=== PATIENT | male | born 1940 | race Caucasian/White ===

== ENCOUNTER 2018-04-01 13:17 | Inpatient (IN) ==
[2018-04-01] MEDS ORDERED: Amiodarone Inj 150 MG in Dextrose 5% in Water Inj 97 ML IV.SIG ONE ×2 (13:20)
[2018-04-01] MEDS ORDERED: Sod Chloride 0.9% Inj 1,000 ML IV.SIG SCH (13:30)
--- NOTE | 2018-04-01 13:36 | ED ---
HPI General Chief Complaint: Arrhythmia / Palpitations Stated Complaint: Cardiac Time Seen by Provider: 04/01/18 13:20 Source: patient and EMS Mode of arrival: EMS Limitations: no limitations History of Present Illness HPI narrative: Patient is a 78-year-old male who presents to the emergency room for evaluation of ventricular tachycardia. Patient reports that he is currently following up with Dr. Kramer his digital marketing program manager. Patient reports that he was walking in the park today when also he felt dizzy. Patient reports that his pacemaker went off once, he called EMS for help. When EMS arrived on scene , patient was found to be in a V. tach rhythm. Patient was given 150 mg of IV amiodarone as well as IV fluids. Patient denies any chest pain or shortness of breath, only reports dizziness. Patient reports that he had a defibrillator placed about 1 year ago when he had a TIA. Patient reports that he was found to have a ventriclular fibrillation rhythm - that is why the defribrillator was placed. Reports that he was put on a bunch of medications including Eliquis, patient reports that he was only given a 30 day course of his medications with no refills so he never had his scripts refilled. Reports that he is supposed to be taking Eliquis but stopped taking it because it made him bleed too much. Patient defibrillator went off a few times, patient does have a [employer] defibrillator. Related Data Home Medications Medication Instructions Recorded Confirmed aspirin 325 mg PO DAILY 03/15/18 03/15/18 azelastine 2 spray INTRANASAL BID 04/01/18 04/01/18 fluticasone [Flonase Allergy 2 spray INTRANASAL DAILY 04/01/18 04/01/18 Relief] furosemide [Lasix] 40 mg PO DAILY 04/01/18 04/01/18 Allergies Allergy/AdvReac Type Severity Reaction Status Date / Time cephalexin AdvReac Severe Diarrhea Verified 03/15/18 06:50 POISON REGULO AdvReac Severe Rash Uncoded 11/23/15 11:26 Review of Systems ROS: all other systems reviewed are negative PMFSH History History Provided By: Patient Medical History Medical History Cardiac defibrillator in place (Acute) TIA (transient ischemic attack) (Acute) Ventricular fibrillation (Acute) Social History Social History Substance History: No History of Abuse Second Hand Smoke Exposure: No Smoking Status: Never smoker How Often Do You Have a Drink Containing Alcohol: Never Recent Travel in [facility] within the Last 8 Weeks: No Recent Out of Country Travel within the Last 8 Weeks: No Exam Narrative Exam Narrative: GENERAL: Moderate distress SKIN: Focused skin assessment warm/dry. HEAD: Atraumatic. Normocephalic. EYES: Pupils equal and round. No scleral icterus. No injection or drainage. ENT: No nasal bleeding or discharge. Mucous membranes pink and moist. NECK: Trachea midline. No JVD. CARDIOVASCULAR: Tachycardic. No murmur appreciated. RESPIRATORY: No accessory muscle use. Clear to auscultation. Breath sounds equal bilaterally. GASTROINTESTINAL: Abdomen soft, non-tender, nondistended. Hepatic and splenic margins not palpable. MUSCULOSKELETAL: No obvious deformities. No clubbing. No cyanosis. No edema. NEUROLOGICAL: Awake and alert. No obvious cranial nerve deficits. Motor grossly within normal limits. Normal speech. PSYCHIATRIC: Appropriate mood and affect; insight and judgment normal. Course Initial Documented Vital Signs Pulse Oximetry 96 04/01/18 13:25 Last Documented Vital Signs Pulse Rate 90 04/01/18 14:53 Respiratory Rate 18 04/01/18 14:53 Blood Pressure 119/76 04/01/18 14:53 Pulse Oximetry 97 04/01/18 14:53 Critical Care Time Critical Care Time: Yes Total Critical Care Time: 45 Attestation: Aggregate critical care time was 45 minutes. Time to perform other separately billable procedures was not included in the critical care time. My time did not include minutes spent treating any other patients simultaneously or on activities that did not directly contribute to the patient's treatment. The services I provided to this patient were to treat and/or prevent clinically significant deterioration that could result in: , decompensation, deterioration I provided critical care services requiring my management, as noted below: Chart data review, documentation time, medication orders and management, vital sign assessments/reviewing monitor data, ordering and reviewing lab tests, ordering and interpreting/reviewing x-rays and diagnostic studies, care of the patient and discussion of the patient with the admitting physicians. Medical Decision Making MDM Narrative Medical decision making narrative: During the course of the patients emergency department visit, the patients history, examination, and differential diagnosis were reviewed with the patient. The patient was placed on a assembler for puller over hand with oximetry and frequent blood pressure monitoring. The patient had an IV access obtained and blood work sent for analysis. The patient was initially provided 150 mg of IV amiodarone by EMS. Patient is alert and oriented x3, patient is conversive. Patient does go into episodes of V. tach, his last episode of V. tach lasted for 33 beats and would resolve on it 's own. Will rebolus patient with another 150mg of amio and start an amio drip Call made to Dr. Kramer - his digital marketing program manager - Dr. Aden is sales operations director for Dr. Kramer [facility] rep is here in the ER evaluating patient Dr Aden is at bedside evaluating patient, recommends a heparin drip with heparin bolus along with amiodarone drip and bolus. If patient still goes into episodes of V. tach, then will start lidocaine. Patient controlled on amio drip - he has short episodes of vtach - patient will be admitted case reviewed with Dr. Travis who accepts pt to service Medical Screen Exam Complete: Yes Emergency Medical Condition: Yes Differential Diagnosis Differential Diagnosis: electrolyte abnormality, arrythmia, aortic dissection, acs Medical Records Medical records reviewed: Yes I reviewed the patient's medical records. Lab Data Result diagrams: 04/01/18 13:37 04/01/18 13:37 Lab Results 04/01/18 04/01/18 04/01/18 Range/Units 13:37 13:37 13:37 WBC 8.3 (4.0-11.0) th/mm3 RBC 4.49 L (4.50-5.90) mil/mm3 Hgb 14.6 (13.0-17.0) gm/dL Hct 41.4 (39.0-51.0) % MCV 92.2 (80.0-100.0) fL MCH 32.6 (27.0-34.0) pg MCHC 35.3 (32.0-36.0) % RDW 14.5 (11.6-17.2) % Plt Count 171 (150-450) th/mm3 MPV 8.9 (7.0-11.0) fL Neut % (Auto) 67.6 (16.0-70.0) % Lymph % (Auto) 19.1 (9.0-44.0) % [place] % (Auto) 7.8 (0.0-8.0) % Eos % (Auto) 4.5 H (0.0-4.0) % Baso % (Auto) 1.0 (0.0-2.0) % Neut # (Auto) 5.6 (1.8-7.7) th/mm3 Lymph # (Auto) 1.6 (1.0-4.8) th/mm3 [place] # (Auto) 0.6 (0.0-0.9) th/mm3 Eos # (Auto) 0.4 (0.0-0.4) th/mm3 Baso # (Auto) 0.1 (0.0-0.2) th/mm3 WBC Differential . Differential Comment Auto diff final PT 11.4 (9.8-11.6) sec INR 1.1 Ratio APTT 28.0 (23.4-31.7) sec Sodium 142 (136-145) meq/L Potassium 4.0 (3.5-5.1) meq/L Chloride 108 H (98-107) meq/L Carbon Dioxide 30.1 (21.0-32.0) meq/L Anion Gap 4 L (5-15) meq/L BUN 18 (7-18) mg/dL Creatinine 0.81 (0.60-1.30) mg/dL Estimated GFR Greater than 89 (>89) mL/min Random Glucose 86 (74-106) mg/dL Calcium 7.6 L (8.5-10.1) mg/dL Magnesium 2.2 (1.5-2.5) mg/dL Total Bilirubin 0.9 (0.2-1.0) mg/dL AST 42 H (15-37) U/L ALT 30 (12-78) U/L Alkaline Phosphatase 68 (45-117) U/L Total Creatine Kinase 62 (39-308) U/L Troponin I Less than 0.02 L (0.02-0.05) ng/mL B-Natriuretic Peptide (0-100) pg/mL Total Protein 6.8 (6.4-8.2) g/dL Albumin 3.1 L (3.4-5.0) g/dL Lipase 191 (73-393) U/L 04/01/ Range/Units 13:37 WBC (4.0-11.0) th/mm3 RBC (4.50-5.90) mil/mm3 Hgb (13.0-17.0) gm/dL Hct (39.0-51.0) % MCV (80.0-100.0) fL MCH (27.0-34.0) pg MCHC (32.0-36.0) % RDW (11.6-17.2) % Plt Count (150-450) th/mm3 MPV (7.0-11.0) fL Neut % (Auto) (16.0-70.0) % Lymph % (Auto) (9.0-44.0) % [place] % (Auto) (0.0-8.0) % Eos % (Auto) (0.0-4.0) % Baso % (Auto) (0.0-2.0) % Neut # (Auto) (1.8-7.7) th/mm3 Lymph # (Auto) (1.0-4.8) th/mm3 [place] # (Auto) (0.0-0.9) th/mm3 Eos # (Auto) (0.0-0.4) th/mm3 Baso # (Auto) (0.0-0.2) th/mm3 WBC Differential Differential Comment PT (9.8-11.6) sec INR Ratio APTT (23.4-31.7) sec Sodium (136-145) meq/L Potassium (3.5-5.1) meq/L Chloride (98-107) meq/L Carbon Dioxide (21.0-32.0) meq/L Anion Gap (5-15) meq/L BUN (7-18) mg/dL Creatinine (0.60-1.30) mg/dL Estimated GFR (>89) mL/min Random Glucose (74-106) mg/dL Calcium (8.5-10.1) mg/dL Magnesium (1.5-2.5) mg/dL Total Bilirubin (0.2-1.0) mg/dL AST (15-37) U/L ALT (12-78) U/L Alkaline Phosphatase (45-117) U/L Total Creatine Kinase (39-308) U/L Troponin I (0.02-0.05) ng/mL B-Natriuretic Peptide 4308 H (0-100) pg/mL Total Protein (6.4-8.2) g/dL Albumin (3.4-5.0) g/dL Lipase (73-393) U/L Imaging Data Radiologist's impression: Chest X-Ray 04/01/18 13:22 CONCLUSION: 1. Cardiomegaly with subtle positive fluid balance. 2. Subtle patchy airspace disease in the right upper lung zone. Thoracic Aorta CT 04/01/18 13:37 CONCLUSION: 1. Unremarkable CTA examination of the chest, abdomen and pelvis. No significant flow-limiting lesion or aneurysm. 2. Mesenteric arteries are widely patent. 3. Clustered nodular opacities in the right suprahilar and posterior right upper lobe likely infectious/inflammatory in etiology. 4. Minimal parenchymal airspace disease and bronchiectasis at the lung bases. 5. Cardiomegaly. 6. Prominent prostate with diffuse bladder wall thickening and multiple bladder diverticula consistent with chronic bladder outlet obstruction. 7. Additional ancillary findings, as above. Discharge Plan Discharge Disposition Patient Disposition: 30 Still Patient Discharge Condition Condition: Fair Discharge Details Diagnosis: Ventricular tachycardia Physicians Team ED Provider: Danielle Street Rxs /Orders / Referrals /Forms Prescriptions: No Action aspirin 325 mg Tablet 325 mg PO DAILY RF: 0 furosemide [Lasix] 40 mg Tablet 40 mg PO DAILY RF: 0 fluticasone [Flonase Allergy Relief] 50 mcg/actuation [place],Suspension 2 spray INTRANASAL DAILY RF: 0 azelastine 0.15 % (205.5 mcg) [place],Non-Aerosol 2 spray INTRANASAL BID RF: 0 Discharge Interventions Interventions: Vital Signs Last Done: 04/01/18 14:53 Status ED Status: With Doctor
--- NOTE | 2018-04-01 13:48 | XR ---
EXAM DATE: 04/01/2018 1:44 PM EST AGE/SEX: 78 years / Male INDICATIONS: Dizziness. CLINICAL DATA: This is the patient's initial encounter. Patient reports that signs and symptoms have been present for 1 day and indicates a pain score of 0/10. MEDICAL/SURGICAL HISTORY: None. . Pacemaker. COMPARISON: [facility], CT CHEST W/O CONTRAST, 02/28/2017. . FINDINGS: Interval placement of dual-lead AICD device. Cardiac silhouette is enlarged. Central pulmonary vascul arity is slightly indistinct. Subtle patchy airspace disease in the right upper lung zone.h Osseous s tructures are intact. CONCLUSION: 1. Cardiomegaly with subtle positive fluid balance. 2. Subtle patchy airspace disease in the right upper lung zone. Electronically signed by: Moses Heart MD 04/01/2018 1:47 PM EST
[2018-04-01 13:59] LABS: Baso # (Auto) 0.1 th/mm3 (0.0-0.2); Eos # (Auto) 0.4 th/mm3 (0.0-0.4); Eos % (Auto) 4.5 % (0.0-4.0); Hematocrit 41.4 % (39.0-51.0); Hemoglobin 14.6 gm/dL (13.0-17.0); Lymph # (Auto) 1.6 th/mm3 (1.0-4.8); Lymph % (Auto) 19.1 % (9.0-44.0); Mean Corpuscular HGB Conc 35.3 % (32.0-36.0); Mean Corpuscular Hemoglobin 32.6 pg (27.0-34.0); Mean Corpuscular Volume 92.2 fL (80.0-100.0); Mean Platelet Volume 8.9 fL (7.0-11.0); Mono # (Auto) 0.6 th/mm3 (0.0-0.9); Mono % (Auto) 7.8 % (0.0-8.0); Neut # (Auto) 5.6 th/mm3 (1.8-7.7); Neut % (Auto) 67.6 % (16.0-70.0); Platelet Count 171 th/mm3 (150-450); Red Blood Count 4.49 mil/mm3 (4.50-5.90); Red Cell Distribution Width 14.5 % (11.6-17.2); White Blood Count 8.3 th/mm3 (4.0-11.0)
[2018-04-01 14:02] LABS: INR 1.1 Ratio; Prothrombin Time 11.4 sec (9.8-11.6)
[2018-04-01 14:05] LABS: Alanine Aminotransferase 30 U/L (12-78); Albumin 3.1 g/dL (3.4-5.0); Anion Gap 4 meq/L (5-15); Aspartate Aminotransferase 42 U/L (15-37); Blood Urea Nitrogen 18 mg/dL (7-18); Calcium 7.6 mg/dL (8.5-10.1); Carbon Dioxide 30.1 meq/L (21.0-32.0); Chloride 108 meq/L (98-107); Glomerular Filtration Rate Greater Than 89 mL/min (>89); Glucose,Random 86 mg/dL (74-106); Lipase 191 U/L (73-393); Magnesium 2.2 mg/dL (1.5-2.5); Sodium 142 meq/L (136-145)
[2018-04-01 14:09] LABS: Alkaline Phosphatase 68 U/L (45-117); Creatine Kinase 62 U/L (39-308); Total Protein 6.8 g/dL (6.4-8.2)
--- NOTE | 2018-04-01 15:11 | CT ---
EXAM DATE: 04/01/2018 3:01 PM EST AGE/SEX: 78 years / Male INDICATIONS: Diffuse abdomen pain today. CLINICAL DATA: This is the patient's initial encounter. Patient reports that signs and symptoms have been present for 1 day and indicates a pain score of 4/10. MEDICAL/SURGICAL HISTORY: Transient ischemic attack. . defibrillator placement RADIATION DOSE: 17.29 CTDI (mGy) COMPARISON: [facility], CT CHEST W/O CONTRAST, 02/28/2017. . TECHNIQUE: Volumetric scanning was performed using a multi-row detector CT scanner during bolus infu henry of 100 ml Omnipaque 350 (iohexol) nonionic water-soluble contrast as a single exam dose. The d deonna was post processed with a variety of visualization algorithms including full volume maximum inten sity projection, multi-planar sliding thin slab reformation, curved planar reformation, and surface r endering techniques. Using automated exposure control and adjustment of the mA and/or kV according t o patient size, radiation dose was kept as low as reasonably achievable to obtain optimal diagnostic quality images. DICOM format image data is available electronically for review and comparison. FINDINGS: Angiographic Findings: Ascending: Normal in [place] without evidence for dissection. Arch: Normal 3 vessel arch anatomy. Proximal arch vessels are patent. Arch is normal in caliber witho ut dissection. Descending: Normal in [place] without evidence for dissection. Abdominal Aorta: Normal in caliber without significant flow limiting stenosis or dissection. Iliacs: The iliac arteries are patent and non-aneurysmal Renal Arteries: Single patent renal arteries. Mesenteric Arteries: Celiac, SMA, and MARIBEL are patent.: General Findings: LUNGS: Cluster of nodular opacities in the right suprahilar region as well as the posterior right up per lobe. Associated minimal bronchiectasis centrally. Minimal groundglass opacities at the lung base s with associated mild bronchiectasis. PLEURA: Trace right and very subtle trace left pleural effusions. MEDIASTINUM: Heart is enlarged without significant pericardial effusion. Mediastinal and hilar calci fied nodes. LIVER: Multiple subcentimeter hypodense lesions throughout the liver which are too small to fully ch aracterize. These appear unchanged from prior exam. SPLEEN: Normal in size with scattered punctate calcifications. PANCREAS: Unremarkable without mass or calcification. KIDNEYS: Kidneys demonstrate symmetrical enhancement and are symmetrical in size without evidence fo r radiopaque renal calculi or hydronephrosis. ADRENAL GLANDS: Unremarkable. BOWEL/MESENTERY: Small to moderate amount of stool throughout the colon. Mild to moderate sigmoid di verticulosis without significant inflammatory change. No dilated loops of bowel. Mild diffuse mesente carmelina stranding without significant ascites. ABDOMINAL WALL: Intact. RETROPERITONEUM: No evidence of adenopathy in the retrocrural, para-aortic, or deep pelvic regions. BLADDER: Diffuse circumferential bladder wall thickening with multiple bladder diverticula. REPRODUCTIVE: Prominent prostate containing multiple coarse calcifications. BONY STRUCTURES: Degenerative spondylosis of the lumbar spine with small bone island at L1 and sacru m. CONCLUSION: 1. Unremarkable CTA examination of the chest, abdomen and pelvis. No significant flow-limiting lesio n or aneurysm. 2. Mesenteric arteries are widely patent. 3. Clustered nodular opacities in the right suprahilar and posterior right upper lobe likely infecti ous/inflammatory in etiology. 4. Minimal parenchymal airspace disease and bronchiectasis at the lung bases. 5. Cardiomegaly. 6. Prominent prostate with diffuse bladder wall thickening and multiple bladder diverticula consiste nt with chronic bladder outlet obstruction. 7. Additional ancillary findings, as above. Electronically signed by: Moses Heart MD 04/01/2018 3:10 PM EST
[2018-04-01] MEDS ORDERED: Heparin 10,000 UNITS/10 ML Vial (for IV use) IV.PUSH STA (15:14)
[2018-04-01] MEDS ORDERED: Acetaminophen 325 MG Tablet PO PRN (15:25)
[2018-04-01] MEDS ORDERED: Bisacodyl 10 MG Supp RECTAL PRN (15:25)
[2018-04-01] MEDS: Heparin Drip 25,000 UNIT/250 ML BAG IV.CONT PRN (15:29)
[2018-04-01] MEDS ORDERED: Potassium Chlor 20 mEq Premix 20 MEQ/100 ML PIGGYBACK IV.SIG PRN ×2 (15:30)
[2018-04-01] MEDS ORDERED: Potassium Chlor 40 mEq Premix 40 MEQ/100 ML PIGGYBACK IV.SIG PRN ×2 (15:30)
[2018-04-01] MEDS ORDERED: Sodium Phosphate Inj 30 MMOL in Sodium Chlor 0.9% Inj 250 ML IV.SIG PRN (15:30)
[2018-04-01] MEDS ORDERED: Magnesium Sulfate Inj 2 GM in Sodium Chlor 0.9% Inj 96 ML IV.SIG PRN (15:30)
[2018-04-01] MEDS ORDERED: Magnesium Sulfate Inj 4 GM in Sodium Chlor 0.9% Inj 92 ML IV.SIG PRN (15:30)
[2018-04-01] MEDS ORDERED: Potassium Phosphate Inj 30 MMOL in Sodium Chlor 0.9% Inj 250 ML IV.SIG PRN (15:30)
[2018-04-01] MEDS ORDERED: Magnesium Oxide 400 MG Tablet PO PRN (15:30)
[2018-04-01] MEDS ORDERED: Potassium Phosphate 500 MG Soluble Tablet PO PRN ×2 (15:30)
[2018-04-01] MEDS ORDERED: Potassium Chloride 25 MEQ Effervescent Tablet PO PRN (15:30)
--- NOTE | 2018-04-01 15:35 | ECHRPT ---
Indication: AFIB AND FLUTTER CONCLUSIONS Severely dilated left ventricle. Wall thickness is normal. The left ventricular systolic function is severely reduced with an estimated ejection fraction less than 20%. There is diffuse global hypokinesis with distinct regional wall motion abnormalities. The left atrial size is [id number] dilated. Mild thickening of the mitral valve leaflets. severe mitral valve regurgitation. Trace aortic valve regurgitation. The estimated pulmonary arterial pressure is 45 mmHg. BP: / HR: Rhythm: MEASUREMENTS (Male / Female) Normal Values Technical Quality: 2D ECHO LV Diastolic Diameter PLAX 7.0 cm 4.2 - 5.9 / 3.9 - 5.3 cm LV Systolic Diameter PLAX 6.7 cm IVS Diastolic Thickness 1.2 cm 0.6 - 1.0 / 0.6 - 0.9 cm LVPW Diastolic Thickness 1.2 cm 0.6 - 1.0 / 0.6 - 0.9 cm LV Relative Wall Thickness 0.3 RV Internal Dim ED PLAX 3.1 cm LVOT Diameter 1.8 cm Aortic Root Diameter 3.0 cm LA Systolic Diameter LX 4.4 cm 3.0 - 4.0 / 2.7 - 3.8 cm LV Ejection Fraction MOD BP 8.3 % >= 55 % LV Ejection Fraction MOD 4C 14.1 % LV Ejection Fraction 4C AL 17.4 % LV Ejection Fraction MOD 2C 1.5 % LV Ejection Fraction 2C AL 1.4 % M-MODE Aortic Root Diameter MM 3.2 cm LA Systolic Diameter MM 4.9 cm LA Ao Ratio MM 1.5 AV Cusp Separation MM 1.8 cm DOPPLER AV Peak Velocity 89.2 cm/s AV Peak Gradient 3.2 mmHg AI Peak Velocity 239.0 cm/s AI Peak Gradient 22.8 mmHg AI Pressure Half Time 426.0 ms LVOT Peak Velocity 38.0 cm/s LVOT Peak Gradient 0.6 mmHg AV Area Cont Eq pk 1.1 cm Mitral E Point Velocity 81.9 cm/s LV E' Lateral Velocity 4.9 cm/s Mitral E to LV E' Lateral Ratio 16.8 LV E' Septal Velocity 5.4 cm/s Mitral E to LV E' Septal Ratio 15.3 TR Peak Velocity 294.0 cm/s TR Peak Gradient 34.6 mmHg Right Atrial Pressure 10.0 mmHg Pulmonary Artery Systolic Pressu 44.6 mmHg Right Ventricular Systolic Press 44.6 mmHg PV Peak Velocity 64.0 cm/s PV Peak Gradient 1.6 mmHg FINDINGS LEFT VENTRICLE Severely dilated left ventricle. Wall thickness is normal. The left ventricular systolic function is severely reduced with an estimated ejection fraction less than 20%. There is diffuse global hypokinesis with distinct regional wall motion abnormalities. RIGHT VENTRICLE Normal right ventricular size and systolic function. LEFT ATRIUM The left atrial size is [id number] dilated. RIGHT ATRIUM The right atrial size is normal. ATRIAL SEPTUM Normal atrial septal thickness without atrial level shunting by limited color doppler interrogation. AORTA The aortic root and proximal ascending aorta are normal in size on limited imaging. MITRAL VALVE Mild thickening of the mitral valve leaflets. [id number] mitral valve regurgitation. AORTIC VALVE Trace aortic valve regurgitation. TRICUSPID VALVE The estimated pulmonary arterial pressure is 45 mmHg. PULMONARY VALVE No pulmonary valve regurgitation or stenosis. VESSELS The inferior vena cava is normal in size. PERICARDIUM No pericardial effusion. Sonny Aden MD, FACC, FSCAI (Electronically Signed) Final Date:01 April 2018 15:34
[2018-04-01] MEDS: Metoprolol Tartrate 25 MG Tablet PO SCH ×2 (15:47→21:06)
--- NOTE | 2018-04-01 16:09 | P.HPCC ---
History of Present Illness Primary Care Physician: Winston Richey MD Chief Complaint: [facility] History of Present Illness: Patient is a 78-year-old male with past medical history significant for TIA, AICD placement approximately 1 year ago for ventricular tachycardia/ fibrillation who presented to the emergency department for evaluation of arrhythmia and AICD firing. 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 Apparently patient was walking in the park today when he felt dizzy and pacemaker fired. EMS was called, found patient in V. tach rhythm. Patient was given 150 mg of IV amiodarone by EMS. In the ER Patient stated that he is supposedly on a 'bunch of medications' but never refilled any after the 30-day supply ran out. Apparently he stopped Eliquis on his own due to bleeding. In the emergency department patient had recurrent ventricular tachycardia up to [address] Aden was consulted and evaluated patient. AICD rep was called and interrogated the pacemaker the shocks are appropriate. Patient was re-bolused with 150 mg of amiodarone and amiodarone infusion had been started per protocol. Also placed on IV heparin I evaluated the patient in the ED. He appears to be in mild distress. Rhythm appears to be paced, while I was evaluating the patient had a 12 beat run of ventricle tachycardia. I have ordered metoprolol 25 mg x1 now and twice daily to be started. I reviewed the 2D echo myself and also discussed with Dr. Aden. 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 He is likely not a candidate for cardiac transplant given his advanced age. Continue IV amiodarone infusion, p.o. metoprolol, add lidocaine if recurrent V. tach. His BNP is 4300 - Diagnosis (1) Recurrent ventricular tachycardia (2) Near syncope (3) Ventricular tachycardia (4) Cardiomyopathy (5) Severe mitral regurgitation Inpatient Certification: I certify that the inpatient services were ordered in accordance with Medicare regulations governing the order. This includes certification that hospital inpatient services are reasonable and necessary and in the case of services not specified as inpatient-only under 42 CFR 419.22(n), that they are appropriately provided as inpatient services in accordance to with the 2-midnight benchmark under 43 CFR 412.3(e) Estimated Total Length of Stay (Days): 5 Plans for Post Hospital Care: Not yet determined Review of Systems All other systems reviewed negative except as stated in HPI PMFSH - History History Provided By: Patient - Medical History Medical History: Medical History (Last Reviewed 04/01/18 @ 16:09 by Clarisa Travis MD) Cardiac defibrillator in place TIA (transient ischemic attack) Ventricular fibrillation - Tobacco History Second Hand Smoke Exposure: No Tobacco Use In Past 30 Days: No Smoking Status: Never smoker - Alcohol History How Often Do You Have a Drink Containing Alcohol: 4 or more times a week - Substance Use History Substance History: No History of Abuse - Travel History Recent Travel in the [place] Within the Last 8 Weeks: No Recent Travel Out of the Country Within the Last 8 Weeks: No - Immunization History Tetanus Immunization: Unsure Medications and Allergies Active Medications: Active Medications Acetaminophen (Tylenol) 650 mg PO Q6H PRN PRN Reason: PAIN 1-10 AND/OR FEVER >101F Al Hydroxide/Mg Hydroxide (Milk Of Magnjonah Liq) 30 ml PO Q12H PRN PRN Reason: Mild Constipation Albuterol (Duoneb Neb (Prn)) 1 ampul NEB Q2HR NEB PRN PRN Reason: WHEEZING Aspirin (Ecotrin) 162 mg PO DAILY JESSICA Bisacodyl (Dulcolax Supp) 10 mg RECTAL DAILY PRN PRN Reason: SEVERE CONSITIPATION Chlorhexidine Gluconate (Chlorhexidine 2% Cloth) 3 pack TOPICAL DAILY@0400 JESSICA Stop: 04/07/18 03:59 Chlorhexidine Gluconate (Chlorhexidine 2% Cloth) 3 pack TOPICAL DAILY@0400 PRN PRN Reason: Extra cloth needed Stop: 04/07/18 03:59 Famotidine (Pepcid Pf Inj) 20 mg IV.PUSH Q12HR JESSICA Amiodarone HCl 450 mg/ (Dextrose) 250 mls @ 33.33 mls/hr IV.CONT TITRATE PRN; Protocol PRN Reason: Per Protocol Last Admin: 04/01/18 13:36 Dose: 1 mg/min, 33.33 mls/hr Heparin Sodium/Dextrose (Heparin/D5w 25,000 U/250 Ml) 25,000 unit in 250 mls @ 0 mls/hr IV.CONT TITRATE PRN; Protocol PRN Reason: Per Protocol Last Admin: 04/01/18 15:29 Dose: 800 units/hr, 8 mls/hr Magnesium Sulfate 4 gm/ Sodium (Chloride) 100 mls @ 50 mls/hr IV.SIG UNSCH PRN PRN Reason: For Magnesium 0.9 - 1.1 mg/dL Magnesium Sulfate 2 gm/ Sodium (Chloride) 100 mls @ 50 mls/hr IV.SIG UNSCH PRN PRN Reason: For Magnesium 1.2 - 1.6 mg/dL Potassium Chloride (Kcl 40 Meq Premix Inj) 40 meq in 100 mls @ 25 mls/hr IV.SIG Q2H PRN PRN Reason: For Potassium 2.8 - 3.2 mEq/L Potassium Chloride (Kcl 20 Meq Premix Inj) 20 meq in 100 mls @ 50 mls/hr IV.SIG Q2H PRN PRN Reason: For Potassium 3.3 - 3.5 mEq/L Potassium Chloride (Kcl 40 Meq Premix Inj) 40 meq in 100 mls @ 25 mls/hr IV.SIG UNSCH PRN PRN Reason: For Potassium 3.3 - 3.5 mEq/L Potassium Chloride (Kcl 20 Meq Premix Inj) 20 meq in 100 mls @ 50 mls/hr IV.SIG Q2H PRN PRN Reason: For Potassium 2.8 - 3.2 mEq/L Potassium Phosphate 30 mmol/ (Sodium Chloride) 260 mls @ 42 mls/hr IV.SIG UNSCH PRN PRN Reason: SEE LABEL COMMENTS Sodium Phosphate 30 mmol/ (Sodium Chloride) 260 mls @ 42 mls/hr IV.SIG UNSCH PRN PRN Reason: For Phosphorus < 2.5 mg/dL Multivitamins 10 ml/ Thiamine HCl 100 mg/ Folic Acid 1 mg/Sodium Chloride 511.2 mls @ 125 mls/hr IV.SIG Q24H JESSICA Stop: 04/03/18 20:06 Lactulose (Lactulose Liq) 30 ml PO DAILY PRN PRN Reason: SEVERE CONSITIPATION Magnesium Oxide (Mag-Ox) 800 mg PO UNSCH PRN PRN Reason: For Magnesium 1.2 - 1.6 mg/dL Metoprolol Tartrate (Lopressor) 25 mg PO BID [facility] Last Admin: 04/01/18 15:47 Dose: 25 mg Potassium Bicarb/Potassium Chloride (K-Lyte Cl Eff) 50 meq PO UNSCH PRN PRN Reason: For Potassium 3.3 - 3.5 mEq/L Potassium Phosphate (K-Phos Original) 2,000 mg PO Q4H PRN PRN Reason: Phosphorus Less Than 2.5 mg/dL Potassium Phosphate (K-Phos Original) 2,000 mg PO UNSCH PRN PRN Reason: SEE LABEL COMMENTS Senna/Docusate Sodium (Coco-Colace) 1 tab PO BID JESSICA Sennosides (Senokot) 17.2 mg PO Q12H PRN PRN Reason: Moderate Constipation Sodium Chloride (Ns Flush) 2 ml IV.FLUSH UNSCH PRN PRN Reason: FLUSH AFTER USING IV ACCESS Sodium Chloride (Ns Flush) 2 ml IV.FLUSH BID JESSICA Sodium Chloride (Ns Flush) 2 ml IV.FLUSH PRN PRN PRN Reason: FLUSH AFTER USING IV ACCESS Allergies Allergy/AdvReac Type Severity Reaction Status Date / Time cephalexin AdvReac Severe Diarrhea Verified 03/15/18 06:50 POISON REGULO AdvReac Severe Rash Uncoded 11/23/15 11:26 Home Medications Medication Instructions Recorded Confirmed Type aspirin 325 mg PO DAILY 03/15/18 04/01/18 History azelastine 2 spray INTRANASAL BID 04/01/18 04/01/18 History fluticasone [Flonase Allergy 2 spray INTRANASAL DAILY 04/01/18 04/01/18 History Relief] furosemide [Lasix] 40 mg PO DAILY 04/01/18 04/01/18 History Results - Labs CBC & Chem 7: 04/01/18 13:37 04/01/18 13:37 Labs: Short CBC 04/01/18 Range/Units 13:37 WBC 8.3 (4.0-11.0) th/mm3 Hgb 14.6 (13.0-17.0) gm/dL Hct 41.4 (39.0-51.0) % Plt Count 171 (150-450) th/mm3 BMP 04/01/18 13:37 Sodium 142 Potassium 4.0 Chloride 108 H Carbon Dioxide 30.1 BUN 18 Creatinine 0.81 Calcium 7.6 L Cardiac Enzymes 04/01/18 Range/Units 13:37 Total Creatine Kinase 62 (39-308) U/L Troponin I Less than 0.02 L (0.02-0.05) ng/mL Liver Function 04/01/18 Range/Units 13:37 Total Bilirubin 0.9 (0.2-1.0) mg/dL AST 42 H (15-37) U/L ALT 30 (12-78) U/L Alkaline Phosphatase 68 (45-117) U/L Albumin 3.1 L (3.4-5.0) g/dL - Imaging Impressions Chest X-Ray 04/01/18 13:22 CONCLUSION: 1. Cardiomegaly with subtle positive fluid balance. 2. Subtle patchy airspace disease in the right upper lung zone. Thoracic Aorta CT 04/01/18 13:37 CONCLUSION: 1. Unremarkable CTA examination of the chest, abdomen and pelvis. No significant flow-limiting lesion or aneurysm. 2. Mesenteric arteries are widely patent. 3. Clustered nodular opacities in the right suprahilar and posterior right upper lobe likely infectious/inflammatory in etiology. 4. Minimal parenchymal airspace disease and bronchiectasis at the lung bases. 5. Cardiomegaly. 6. Prominent prostate with diffuse bladder wall thickening and multiple bladder diverticula consistent with chronic bladder outlet obstruction. 7. Additional ancillary findings, as above. Exam Vital signs: Vital Signs 04/01/18 13:25 04/01/18 13:50 04/01/18 14:53 Pulse Rate 107 H 90 Respiratory Rate 18 18 Blood Pressure 102/84 119/76 Pulse Oximetry 96 98 97 Intake & Output 03/31/18 04/01/18 04/01/18 18:59 06:59 18:59 Intake Total 100 / 100 Balance 100 / 100 Weight 69.4 kg Intake: IV 100 / 100 Cordarone Inj 150 MG In D5W Inj 100 / 100 97 ML @ 600 mls/hr IV.SIG ONCE ONE Rx#:[id number] Narrative: GENERAL: Mild distress, mildly anxious SKIN: warm/dry. HEAD: Atraumatic. Normocephalic. EYES: Pupils equal and round. ENT: No nasal bleeding or discharge. NECK: Trachea midline. No JVD. CARDIOVASCULAR: Tachycardic. Grade 1 systolic murmur at the apex. Left upper chest AICD in place RESPIRATORY: No accessory muscle use. Clear to auscultation. Breath sounds equal bilaterally. GASTROINTESTINAL: Abdomen soft, non-tender, nondistended. Hepatic and splenic margins not palpable. MUSCULOSKELETAL: No obvious deformities. No clubbing. No cyanosis. No edema. NEUROLOGICAL: Awake and alert. No obvious cranial nerve deficits. Motor grossly within normal limits. Normal speech. PSYCHIATRIC: Appears to have poor insight Septic Shock Reassessment Septic shock perfusion: reassessment completed Caprini VTE Risk Assessment Caprini VTE Risk Assessment: Moderate/High Risk (score >= 2) Caprini Risk Assessment Model: Point Value = 1 Point Value = 2 Point Value = 3 Point Value = 5 Age 41-60 Minor surgery BMI > 25 kg/m2 Swollen legs Varicose veins or History of unexplained or recurrent spontaneous Oral contraceptives or hormone replacement Sepsis (< 1 month) Serious lung disease, including pneumonia (< 1 month) Abnormal pulmonary function Acute myocardial infarction Congestive heart failure (< 1 month) History of inflammatory bowel disease Medical patient at bed rest Age 61-74 Arthroscopic surgery Major open surgery (> 45 min) Laparoscopic surgery (> 45 min) Malignancy Confined to bed (> 72 hours) Immobilizing plaster cast Central venous access Age >= 75 History of VTE Family history of VTE Factor V Leiden Prothrombin [id number] Lupus anticoagulant Anticardiolipin antibodies Elevated serum homocysteine Heparin-induced thrombocytopenia Other congenital or acquired thrombophilia Stroke (< 1 month) Elective arthroplasty Hip, pelvis, or leg fracture Acute spinal cord injury (< 1 month) Prophylaxis Regimen: Total Risk Factor Score Risk Level Prophylaxis Regimen 0-1 Low Early ambulation 2 Moderate Order ONE of the following: *Sequential Compression Device (SCD) *Heparin 5000 units SQ BID 3-4 Higher Order ONE of the following medications: *Heparin 5000 units SQ TID *Enoxaparin/Lovenox 40 mg SQ daily (WT < 150 kg, CrCl > 30 mL/min) *Enoxaparin/Lovenox 30 mg SQ daily (WT < 150 kg, CrCl > 10-29 mL/min) *Enoxaparin/Lovenox 30 mg SQ BID (WT < 150 kg, CrCl > 30 mL/min) AND/OR *Sequential Compression Device (SCD) 5 or more Highest Order ONE of the following medications: *Heparin 5000 units SQ TID (Preferred with Epidurals) *Enoxaparin/Lovenox 40 mg SQ daily (WT < 150 kg, CrCl > 30 mL/min) *Enoxaparin/Lovenox 30 mg SQ daily (WT < 150 kg, CrCl > 10-29 mL/min) *Enoxaparin/Lovenox 30 mg SQ BID (WT < 150 kg, CrCl > 30 mL/min) AND *Sequential Compression Device (SCD) Assessment and Plan - Problem List (1) Recurrent ventricular tachycardia Code(s): I47.2 - Ventricular tachycardia Status: Acute (2) Near syncope Code(s): R55 - Syncope and collapse Status: Acute (3) Ventricular tachycardia Code(s): I47.2 - Ventricular tachycardia Status: Chronic (4) Cardiomyopathy Code(s): I42.9 - Cardiomyopathy, unspecified Status: Chronic (5) Severe mitral regurgitation Code(s): I34.0 - Nonrheumatic mitral (valve) insufficiency Status: Chronic - Assessment and Plan Plan: NEURO: Near syncope due to cardiac arrhythmia History of TIA Daily alcohol use -Minimize sedation -Supplement multivitamin thiamine -Daily alcohol use but no abuse RESP: -DuoNeb every 6 hours as needed -Aggressive pulmonary toilet CV: Recurrent symptomatic sustained ventricular tachycardia Severe cardiomyopathy dilated (E5 15-20%) Severe mitral regurgitation Status post AICD -AICD interrogated firing appropriately -Cardiology Dr. Aden, discussed with him -Continue IV amiodarone continue IV heparin -Add metoprolol 25 mg now and twice daily -Continue home medications aspirin and Lasix. -Start Aldactone 25 mg twice daily if blood pressure permits -Given his advanced age and severe cardiomyopathy, he is not a candidate for invasive workup or transplant evaluation -His prognosis is poor and palliative care consultation requested -2D echo is pending but on my review EF is 15-20% and patient has severe MR GI: -Cardiac diet, IV famotidine : -Monitor renal function closely. No indication for Pierre's catheter at this time ID: -Monitor closely for infection HEME: -Monitor CBC, coags ENDO: -Electrolyte replacement per protocol PROPH: -Bilateral lower extremity SCDs. IV heparin/famotidine LINES: -Utilize peripheral IVs, central line if needed CC time 38 min Patient is critically ill with life-threatening ventricular tachycardia which is recurrent poorly controlled. His ejection fraction is approximately 15-20% with severe MR. his prognosis is extremely poor as he is not a transplant candidate. Palliative care has been consulted
[2018-04-01] MEDS: Spironolactone 25 MG Tablet PO SCH (18:37)
--- NOTE | 2018-04-01 18:37 | MB ---
cc: Sonny Aden MD,Eduard MÁRQUEZ DATE: 04/01/2018 HISTORY OF PRESENT ILLNESS: Norberto is a very pleasant 78-year-old gentleman with a history of atrial fibrillation, TIA, previously seen by Dr. Kramer. He is noncompliant with Eliquis. He presents with near syncope. He was found to be in ventricular tachycardia, confirmed by ICD interrogation. He has had multiple episodes. He has been defibrillated by his defibrillator. He has been placed on an amiodarone bolus and drip by Dr. Street in the ER. He is currently awake and alert, in no acute distress. Denies fever, chills, cough, GI or bleeding, PND or orthopnea. PAST MEDICAL HISTORY: As per history of present illness. He has a history of ventricular fibrillation. SOCIAL HISTORY: Denies tobacco use. Drinks 4 or more times a week. ALLERGIES: CEPHALEXIN, POISON REGULO. MEDICATIONS: Amiodarone bolus and drip. PHYSICAL EXAMINATION: VITAL SIGNS: Pulse 107, blood pressure 102/84, sats 98% on room air, respiratory rate 18. GENERAL: He is alert and oriented x 3, in no acute distress. NECK: Supple. No JVD. No bruit. CARDIOVASCULAR: S1, S2. No murmurs, rubs or gallops. LUNGS: Clear to auscultation bilaterally. ABDOMEN: Soft, nontender and nondistended with positive bowel sounds. EXTREMITIES: No lower extremity edema. IMAGING STUDIES: Chest x-ray shows cardiomegaly with subtle positive fluid balance, subtle patchy airspace disease in the right upper lung zone. LABORATORY DATA: White count 8.3, hemoglobin 14.6, hematocrit 41.4, platelet count 71. INR 1.1. Sodium 142, potassium 4.0, chloride 108, bicarbonate 30.1, BUN 18, creatinine 0.81. Troponins less than 0.02. BMP is pending. AST 42. DIAGNOSES: 1. Ventricular tachycardia. 2. Medical noncompliance. 3. History of atrial fibrillation. 4. Elevated liver enzymes. DISCUSSION: I have discussed the case with Dr. Street in detail. I agree with the IV amiodarone bolus and drip. Also add lidocaine 1 mg/kg load over 3 minutes and then 1 mg per hour. Replete electrolytes p.r.n. We will start a heparin bolus and drip. Also add aspirin 81 mg daily. Check serial enzymes. Check a 2-D echo. Dr. Kramer will follow up tomorrow, 04/02/2018, for further evaluation and management. MD MEIR Anderson/michael , 02:19 PM , 02:25 PM
[2018-04-01] MEDS: Multivitamin Inj 10 ML, Thiamine Inj 100 MG, Folic Acid Inj 1 MG in Sodium Chlor 0.9% I... IV.SIG SCH (18:38)
[2018-04-01] MEDS: Famotidine PF Inj 20 MG/2 ML Vial IV.PUSH SCH (21:05)
[2018-04-01] MEDS: Senna/Docusate Sodium 8.6/50 MG Tablet PO SCH (21:05)
[2018-04-02] MEDS: Chlorhexidine Gluconate 2% 1 Pack (2 Cloths) TOPICAL SCH (04:00)
[2018-04-02] MEDS ORDERED: Chlorhexidine Gluconate 2% 1 Pack (2 Cloths) TOPICAL PRN (04:00)
[2018-04-02 04:04] LABS: Baso # (Auto) 0.1 th/mm3 (0.0-0.2); Baso % (Auto) 0.7 % (0.0-2.0); Eos % (Auto) 0.3 % (0.0-4.0); Hematocrit 46.1 % (39.0-51.0); Hemoglobin 15.3 gm/dL (13.0-17.0); Lymph # (Auto) 1.3 th/mm3 (1.0-4.8); Lymph % (Auto) 12.5 % (9.0-44.0); Mean Corpuscular HGB Conc 33.2 % (32.0-36.0); Mean Corpuscular Hemoglobin 31.2 pg (27.0-34.0); Mean Corpuscular Volume 93.9 fL (80.0-100.0); Mean Platelet Volume 9.1 fL (7.0-11.0); Mono # (Auto) 0.9 th/mm3 (0.0-0.9); Mono % (Auto) 8.6 % (0.0-8.0); Neut # (Auto) 8.3 th/mm3 (1.8-7.7); Neut % (Auto) 77.9 % (16.0-70.0); Platelet Count 165 th/mm3 (150-450); Red Blood Count 4.91 mil/mm3 (4.50-5.90); Red Cell Distribution Width 14.7 % (11.6-17.2); White Blood Count 10.6 th/mm3 (4.0-11.0)
[2018-04-02 04:25] LABS: Albumin 3.1 g/dL (3.4-5.0); Anion Gap 8 meq/L (5-15); Aspartate Aminotransferase 64 U/L (15-37); Blood Urea Nitrogen 23 mg/dL (7-18); Calcium 7.9 mg/dL (8.5-10.1); Carbon Dioxide 25.2 meq/L (21.0-32.0); Chloride 108 meq/L (98-107); Glomerular Filtration Rate Greater Than 89 mL/min (>89); Glucose,Random 125 mg/dL (74-106); Magnesium 2.3 mg/dL (1.5-2.5); Potassium 4.3 meq/L (3.5-5.1); Sodium 141 meq/L (136-145)
[2018-04-02 04:29] LABS: Alanine Aminotransferase 70 U/L (12-78); Alkaline Phosphatase 73 U/L (45-117); Total Protein 6.9 g/dL (6.4-8.2)
--- NOTE | 2018-04-02 07:34 | P.PNCC ---
Subjective Subjective Remarks/Hospital Course: Patient is a 78-year-old male with past medical history significant for TIA, AICD placement approximately 1 year ago for ventricular tachycardia/ fibrillation who presented to the emergency department for evaluation of arrhythmia and AICD firing. 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 Apparently patient was walking in the park today when he felt dizzy and pacemaker fired. EMS was called, found patient in V. tach rhythm. Patient was given 150 mg of IV amiodarone by EMS. In the ER Patient stated that he is supposedly on a 'bunch of medications' but never refilled any after the 30-day supply ran out. Apparently he stopped Eliquis on his own due to bleeding. In the emergency department patient had recurrent ventricular tachycardia up to [address] Aden was consulted and evaluated patient. AICD rep was called and interrogated the pacemaker the shocks are appropriate. Patient was re-bolused with 150 mg of amiodarone and amiodarone infusion had been started per protocol. Also placed on IV heparin. I evaluated the patient in the ED. He appears to be in mild distress. Rhythm appears to be paced, while I was evaluating the patient had a 12 beat run of ventricle tachycardia. I have ordered metoprolol 25 mg x1 now and twice daily to be started. I reviewed the 2D echo myself and also discussed with Dr. Aden. 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 He is likely not a candidate for cardiac transplant given his advanced age. Continue IV amiodarone infusion, p.o. metoprolol, add lidocaine if recurrent V. tach. His BNP is 4300 SUBJ 04/02: Lying in bed no acute distress. Remains on heparin and IV amiodarone for ventricular tachycardia control. No further episodes of V. tach since admission. Patient denies chest pain or shortness of breath Objective Vital Signs / I&O: Vital Signs 04/01/18 13:25 04/01/18 13:50 04/01/18 14:53 Temperature Pulse Rate 107 H 90 Respiratory Rate 18 18 Blood Pressure 102/84 119/76 Pulse Oximetry 96 98 97 04/01/18 15:58 04/01/18 17:00 04/01/18 18:00 Temperature 97.8 F Pulse Rate 99 H 90 82 Respiratory Rate 18 20 20 Blood Pressure 125/84 115/86 112/78 Pulse Oximetry 98 99 04/01/18 19:00 04/01/18 20:00 04/01/18 21:00 Temperature 97.3 F L Pulse Rate 84 81 75 Respiratory Rate 39 H 20 18 Blood Pressure 105/75 95/63 L 106/70 Pulse Oximetry 97 99 100 04/01/18 21:52 04/01/18 21:59 04/01/18 22:00 Temperature Pulse Rate 78 76 Respiratory Rate 26 H 24 Blood Pressure 101/77 Pulse Oximetry 97 99 99 04/01/18 22:30 04/01/18 23:00 04/01/18 23:05 Temperature Pulse Rate 79 77 77 Respiratory Rate 19 25 H 12 Blood Pressure 103/82 108/72 108/72 Pulse Oximetry 99 100 99 04/01/18 23:30 04/02/18 00:00 04/02/18 00:01 Temperature 98.1 F Pulse Rate 76 76 75 Respiratory Rate 24 22 17 Blood Pressure 102/58 L 105/60 105/60 Pulse Oximetry 99 99 99 04/02/18 00:30 04/02/18 01:00 04/02/18 01:01 Temperature Pulse Rate 76 78 77 Respiratory Rate 23 23 15 Blood Pressure 100/72 100/75 100/75 Pulse Oximetry 98 98 98 04/02/18 01:30 04/02/18 02:00 04/02/18 02:30 Temperature Pulse Rate 77 77 79 Respiratory Rate 24 25 H 17 Blood Pressure 99/80 L 97/71 L 96/68 L Pulse Oximetry 98 99 98 04/02/18 03:00 04/02/18 03:30 04/02/18 04:00 Temperature 97.4 F L Pulse Rate 79 79 80 Respiratory Rate 21 12 22 Blood Pressure 95/73 L 98/70 L 105/75 Pulse Oximetry 98 98 99 04/02/18 04:30 04/02/18 05:00 04/02/18 05:30 Temperature Pulse Rate 79 80 80 Respiratory Rate 23 24 23 Blood Pressure 100/70 103/79 94/78 L Pulse Oximetry 98 98 99 04/02/18 06:00 Temperature Pulse Rate 85 Respiratory Rate 28 H Blood Pressure 96/72 L Pulse Oximetry 98 Intake & Output 04/01/18 04/02/18 04/02/18 18:59 06:59 18:59 Intake Total 100 / 100 1061.2 / 1061.2 Output Total 240 / 240 Balance 100 / 100 821.2 / 821.2 Weight 69.4 kg 71 kg Intake: IV 100 / 100 761.2 / 761.2 Cordarone Inj 450 MG In D5W Inj 250 / 250 241 ML @ 1 MG/MIN 33.33 mls/hr IV.CONT TITRATE PRN Rx#: [id number] Cordarone Inj 150 MG In D5W Inj 100 / 100 97 ML @ 600 mls/hr IV.SIG ONCE ONE Rx#:[id number] MVI-12 Inj 10 ML Thiamine Inj 511.2 / 511.2 100 MG Folvite Inj 1 MG In NS Inj 500 ML @ 125 mls/hr IV.SIG Q24H JESSICA Rx#:[id number] Oral 300 / 300 Output: Urine 240 / 240 Other: # Voids 4 Date of Last Bowel Movement 03/31/18 03/31/18 # Bowel Movements 0 Result Diagrams: 04/02/18 03:45 04/02/18 03:45 Objective Remarks: GENERAL: Alert awake lying in bed no acute distress SKIN: warm/dry. HEAD: Atraumatic. Normocephalic. EYES: Pupils equal and round. ENT: No nasal bleeding or discharge. NECK: Trachea midline. No JVD. CARDIOVASCULAR: Mildly tachycardic. Grade 1 systolic murmur at the apex. Left upper chest AICD in place RESPIRATORY: No accessory muscle use. Clear to auscultation. Breath sounds equal bilaterally. GASTROINTESTINAL: Abdomen soft, non-tender, nondistended. Hepatic and splenic margins not palpable. MUSCULOSKELETAL: No obvious deformities. No clubbing. No cyanosis. No edema. NEUROLOGICAL: Awake and alert. No obvious cranial nerve deficits. Motor grossly within normal limits. Normal speech. PSYCHIATRIC: Appears to have poor insight Assessment and Plan - Problem List (1) Recurrent ventricular tachycardia Code(s): I47.2 - Ventricular tachycardia Status: Acute (2) Near syncope Code(s): R55 - Syncope and collapse Status: Acute (3) Ventricular tachycardia Code(s): I47.2 - Ventricular tachycardia Status: Chronic (4) Cardiomyopathy Code(s): I42.9 - Cardiomyopathy, unspecified Status: Chronic (5) Severe mitral regurgitation Code(s): I34.0 - Nonrheumatic mitral (valve) insufficiency Status: Chronic - Assessment and Plan Plan: NEURO: Near syncope due to cardiac arrhythmia History of TIA Daily alcohol use -Minimize sedation -Supplement multivitamin thiamine -Daily alcohol use RESP: -DuoNeb every 6 hours as needed -Aggressive pulmonary toilet CV: Recurrent symptomatic ventricular tachycardia Severe cardiomyopathy dilated (E5 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 Aden -Continue IV amiodarone continue IV heparin -Metoprolol 25 mg twice daily -Continue home medications aspirin and Lasix. -Aldactone 25 mg twice daily -Given his advanced age and severe cardiomyopathy, he is not a candidate for invasive workup or transplant -His prognosis is poor and palliative care consultation requested -2D echo report is pending but on my review EF is 15-20% and patient has severe MR GI: -Cardiac diet, IV famotidine : -Monitor renal function closely. No indication for Pierre's catheter at this time ID: -Monitor closely for infection HEME: -Monitor CBC, coags ENDO: -Electrolyte replacement per protocol PROPH: -Bilateral lower extremity SCDs. IV heparin/famotidine LINES: -Utilize peripheral IVs, central line if needed Level 3 Patient is critically ill with life-threatening ventricular tachycardia which is currently more stable. His ejection fraction is approximately 15-20% with severe MR. his prognosis is extremely poor as he is not a transplant candidate. Palliative care has been consulted. Continue his IV amiodarone and IV heparin and will transfer to [facility] with telemetry, hospitalist to assume care
[2018-04-02] MEDS: Senna/Docusate Sodium 8.6/50 MG Tablet PO SCH ×2 (08:00→21:20)
[2018-04-02] MEDS: Spironolactone 25 MG Tablet PO SCH ×2 (08:00→17:06)
[2018-04-02] MEDS: Famotidine PF Inj 20 MG/2 ML Vial IV.PUSH SCH ×2 (08:01→21:00)
[2018-04-02] MEDS ORDERED: Furosemide 40 MG Tablet PO SCH (09:00)
--- NOTE | 2018-04-02 09:39 | P.CONPAL ---
Consult Service: Palliative Care Requesting Physician: Clarisa Travis Reason for Consult: a. To assist with evaluation and management of symptoms including:pain, dyspnea b. To assist medical decision maker(s) with: better understanding of current medical conditions; weighing benefits/burdens of medical treatment options; making medical treatment decisions. Primary Care Provider: Winston Richey MD History of Present Illness History of Present Illness: This is an 78-year-old male who was brought to the ER 04/01/18 for his AICD firing. [place] the park and felt dizzy and his pacemaker fired. Per ER documentation, his AOCD was placed about a year ago , was discharged with a 30-day supply of medications but did not follow up after he ran out. He was also on Eliquis but stopped it due to bleeding. Prior to coming to the ER, he was given 150mg Amiodarone bolus by EMS. While in the ER, he continued to have recurrent ventricular tachycardia, up to 30 beat runs, he was given an additional 150 mg bolus and placed on a heparin drip. Pacemaker was interrogated and found to be giving shocks appropriately. ER course: While in the ER, he continued to have recurrent ventricular tachycardia, up to 30 beat runs, he was given an additional 150 mg bolus and placed on a heparin drip. Pacemaker was interrogated and found to be giving shocks appropriately. Echocardiogram shows EF 15-20%. WBC 10.6, hemoglobin 15.3, hematocrit 41.6, platelets 165, sodium 141, potassium 4.3, chloride 108, carbon dioxide 25.2, BUN 23, creatinine 0.79, lactic acid 2.5, bilirubin 1.5, AST/ALT 64/70, BNP 4308 , protein 6.9, albumin 3.1, PT/INR 11.4/1.1, APTT 28. Patient seen and examined in his room, at bedside though she is sleeping during most of visit. He remains on amiodarone and heparin. Patient seems to have poor understanding of his overall condition. He reports that prior to this hospitalization he was feeling fine. 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 He attributes this fatigue to cervical nerve pain making it difficult to sleep. Attempted to discuss likelihood of his increasing fatigue and weakness are more likely due to poor cardiac function, he states "I know" but further states cervical "pain does not make it any easier." Explored reasons for lack of follow-up of cardiac meds post pacemaker placement over a year ago. He states "I didn't know I had to continue taking them." He further indicates that he stopped some meds due to unwanted side effects. Once again, he states "my heart was fine." Again attempted to discuss past history regarding need for placement of pacemaker, current ejection fraction of 10-15%, poor medication compliance, showing poor health status. He reports he was told by a physician in [place] that his heart was "a little bad." He would like to remain FULL CODE. Function/Cognitive Trajectory: Alert and oriented, able to make his own decisions. He does not appear to have good insight into his overall condition. He endorses increasing fatigue that he feels is due to lack of sleep and cervical pain. He reports over the past year , he has been "taking it easy" per his stagecraft professor. Review of Systems Constitutional: Reports fatigue, Reports lack of energy Eyes: Reports change in vision, Reports loss of vision Comments: "after starting cardiac meds" Ears, Nose, Mouth, and Throat: Denies abnormal hearing, Denies hearing loss Cardiovascular: Reports irregular heart rhythm, Reports lightheadedness, Denies chest pain Respiratory: Denies cough, Denies shortness of breath Comments: recent sinus infection Gastrointestinal: Denies abdominal pain, Denies change in stools, Denies nausea , Denies vomiting Genitourinary: Denies urinary frequency, Denies urinary urgency Musculoskeletal: Reports neck pain, Reports radiating pain into limb Skin/Breast: Denies change in skin color, Denies itching, Denies lesions Neurologic: Reports dizziness, Reports lack of coordination, Reports radiating pain (cervical radiculopathy) Psychiatric: Denies abnormal sleep pattern, Denies anxiety, Denies behavioral changes, Denies confusion, Denies depression Endocrine: Denies cold intolerance, Denies heat intolerance Hematologic/Lymphatic: Reports easy bleeding (stopped taking Eliquis due to bleeding), Reports easy bruising PMFSH - History History Provided By: Patient, Medical Record - Medical History Medical History: Medical History (Last Updated 04/02/18 @ 09:37 by CORTEZ Lucero) CHF (congestive heart failure) Cataract Hx of fracture of femur [place] Cardiac defibrillator in place TIA (transient ischemic attack) Ventricular fibrillation - Surgical History Surgical History: Surgical History (Last Updated 04/02/18 @ 09:34 by CORTEZ Lucero) Hx of tonsillectomy - Social History I have reviewed the patient's Social History: Yes - Tobacco History Second Hand Smoke Exposure: No Tobacco Use In Past 30 Days: No Smoking Status: Former smoker (quit 1964) - Alcohol History How Often Do You Have a Drink Containing Alcohol: 4 or more times a week - Substance Use History Substance History: No History of Abuse - Travel History Recent Travel in the [place] Within the Last 8 Weeks: No Recent Travel Out of the Country Within the Last 8 Weeks: No - Immunization History Tetanus Immunization: >5 Years Hx Influenza Vaccine This Season: Yes Medications and Allergies Allergies Allergy/AdvReac Type Severity Reaction Status Date / Time cephalexin AdvReac Severe Diarrhea Verified 03/15/18 06:50 POISON REGULO AdvReac Severe Rash Uncoded 11/23/15 11:26 Home Medications Medication Instructions Recorded Confirmed Type aspirin 325 mg PO DAILY 03/15/18 04/01/18 History azelastine 2 spray INTRANASAL BID 04/01/18 04/01/18 History fluticasone [Flonase Allergy 2 spray INTRANASAL DAILY 04/01/18 04/01/18 History Relief] furosemide [Lasix] 40 mg PO DAILY 04/01/18 04/01/18 History Active Medications: Active Medications Acetaminophen (Tylenol) 650 mg PO Q6H PRN PRN Reason: PAIN 1-10 AND/OR FEVER >101F Al Hydroxide/Mg Hydroxide (Milk Of Esvin Clemons) 30 ml PO Q12H PRN PRN Reason: Mild Constipation Albuterol (Duoneb Neb (Prn)) 1 ampul NEB Q2HR NEB PRN PRN Reason: WHEEZING Aspirin (Ecotrin) 162 mg PO DAILY [facility] Last Admin: 04/02/18 08:01 Dose: 162 mg Bisacodyl (Dulcolax Supp) 10 mg RECTAL DAILY PRN PRN Reason: SEVERE CONSITIPATION Carvedilol (Coreg) 3.125 mg PO BID [facility] Chlorhexidine Gluconate (Chlorhexidine 2% Cloth) 3 pack TOPICAL DAILY@0400 [facility] Stop: 04/07/18 03:59 Last Admin: 04/02/18 04:00 Dose: 3 pack Chlorhexidine Gluconate (Chlorhexidine 2% Cloth) 3 pack TOPICAL DAILY@0400 PRN PRN Reason: Extra cloth needed Stop: 04/07/18 03:59 Famotidine (Pepcid Pf Inj) 20 mg IV.PUSH Q12HR [facility] Last Admin: 04/02/18 08:01 Dose: 20 mg Furosemide (Lasix) 40 mg PO DAILY [facility] Last Admin: 04/02/18 08:01 Dose: 40 mg Heparin Sodium/Dextrose (Heparin/D5w 25,000 U/250 Ml) 25,000 unit in 250 mls @ 0 mls/hr IV.CONT TITRATE PRN; Protocol PRN Reason: Per Protocol Last Titration: 04/02/18 04:24 Dose: 900 units/hr, 9 mls/hr Magnesium Sulfate 4 gm/ Sodium (Chloride) 100 mls @ 50 mls/hr IV.SIG UNSCH PRN PRN Reason: For Magnesium 0.9 - 1.1 mg/dL Magnesium Sulfate 2 gm/ Sodium (Chloride) 100 mls @ 50 mls/hr IV.SIG UNSCH PRN PRN Reason: For Magnesium 1.2 - 1.6 mg/dL Potassium Chloride (Kcl 40 Meq Premix Inj) 40 meq in 100 mls @ 25 mls/hr IV.SIG Q2H PRN PRN Reason: For Potassium 2.8 - 3.2 mEq/L Potassium Chloride (Kcl 20 Meq Premix Inj) 20 meq in 100 mls @ 50 mls/hr IV.SIG Q2H PRN PRN Reason: For Potassium 3.3 - 3.5 mEq/L Potassium Chloride (Kcl 40 Meq Premix Inj) 40 meq in 100 mls @ 25 mls/hr IV.SIG UNSCH PRN PRN Reason: For Potassium 3.3 - 3.5 mEq/L Potassium Chloride (Kcl 20 Meq Premix Inj) 20 meq in 100 mls @ 50 mls/hr IV.SIG Q2H PRN PRN Reason: For Potassium 2.8 - 3.2 mEq/L Potassium Phosphate 30 mmol/ (Sodium Chloride) 260 mls @ 42 mls/hr IV.SIG UNSCH PRN PRN Reason: SEE LABEL COMMENTS Sodium Phosphate 30 mmol/ (Sodium Chloride) 260 mls @ 42 mls/hr IV.SIG UNSCH PRN PRN Reason: For Phosphorus < 2.5 mg/dL Multivitamins 10 ml/ Thiamine HCl 100 mg/ Folic Acid 1 mg/Sodium Chloride 511.2 mls @ 125 mls/hr IV.SIG Q24H [facility] Stop: 04/03/18 22:06 Last Infusion: 04/01/18 23:37 Dose: Infused Lactulose (Lactulose Liq) 30 ml PO DAILY PRN PRN Reason: SEVERE CONSITIPATION Magnesium Oxide (Mag-Ox) 800 mg PO UNSCH PRN PRN Reason: For Magnesium 1.2 - 1.6 mg/dL Potassium Bicarb/Potassium Chloride (K-Lyte Cl Eff) 50 meq PO UNSCH PRN PRN Reason: For Potassium 3.3 - 3.5 mEq/L Potassium Phosphate (K-Phos Original) 2,000 mg PO Q4H PRN PRN Reason: Phosphorus Less Than 2.5 mg/dL Last Admin: 04/02/18 08:00 Dose: 2,000 mg Potassium Phosphate (K-Phos Original) 2,000 mg PO UNSCH PRN PRN Reason: SEE LABEL COMMENTS Senna/Docusate Sodium (Coco-Colace) 1 tab PO BID [facility] Last Admin: 04/02/18 08:00 Dose: Not Given Sennosides (Senokot) 17.2 mg PO Q12H PRN PRN Reason: Moderate Constipation Sodium Chloride (Ns Flush) 2 ml IV.FLUSH UNSCH PRN PRN Reason: FLUSH AFTER USING IV ACCESS Sodium Chloride (Ns Flush) 2 ml IV.FLUSH BID [facility] Last Admin: 04/01/18 21:06 Dose: 2 ml Sodium Chloride (Ns Flush) 2 ml IV.FLUSH PRN PRN PRN Reason: FLUSH AFTER USING IV ACCESS Spironolactone (Aldactone) 25 mg PO BID@0900,1800 [facility] Last Admin: 04/02/18 08:00 Dose: 25 mg Advance Directives Living Will: No Healthcare Surrogate: Yes (Completed 04/02/2018) Health Care Surrogate Name and Number: Paul (christal Wakefield)Dold [phone]& Vandana Mela (leah)[phone] Power of Carbonator: No Today's verbally stated goals: Remains a full code. States "not going to stop fighting." Has 2 sons that he would like to be healthcare surrogate's as his has dementia. Physical Exam Vital Signs: Vital Signs - 24 hr 04/01/18 13:25 04/01/18 13:50 04/01/18 14:53 Temperature Pulse Rate 107 H 90 Respiratory Rate 18 18 Blood Pressure 102/84 119/76 Pulse Oximetry 96 98 97 04/01/18 15:58 04/01/18 17:00 04/01/18 18:00 Temperature 97.8 F Pulse Rate 99 H 90 82 Respiratory Rate 18 20 20 Blood Pressure 125/84 115/86 112/78 Pulse Oximetry 98 99 04/01/18 19:00 04/01/18 20:00 04/01/18 21:00 Temperature 97.3 F L Pulse Rate 84 81 75 Respiratory Rate 39 H 20 18 Blood Pressure 105/75 95/63 L 106/70 Pulse Oximetry 97 99 100 04/01/18 21:52 04/01/18 21:59 04/01/18 22:00 Temperature Pulse Rate 78 76 Respiratory Rate 26 H 24 Blood Pressure 101/77 Pulse Oximetry 97 99 99 04/01/18 22:30 04/01/18 23:00 04/01/18 23:05 Temperature Pulse Rate 79 77 77 Respiratory Rate 19 25 H 12 Blood Pressure 103/82 108/72 108/72 Pulse Oximetry 99 100 99 04/01/18 23:30 04/02/18 00:00 04/02/18 00:01 Temperature 98.1 F Pulse Rate 76 76 75 Respiratory Rate 24 22 17 Blood Pressure 102/58 L 105/60 105/60 Pulse Oximetry 99 99 99 04/02/18 00:30 04/02/18 01:00 04/02/18 01:01 Temperature Pulse Rate 76 78 77 Respiratory Rate 23 23 15 Blood Pressure 100/72 100/75 100/75 Pulse Oximetry 98 98 98 04/02/18 01:30 04/02/18 02:00 04/02/18 02:30 Temperature Pulse Rate 77 77 79 Respiratory Rate 24 25 H 17 Blood Pressure 99/80 L 97/71 L 96/68 L Pulse Oximetry 98 99 98 04/02/18 03:00 04/02/18 03:30 04/02/18 04:00 Temperature 97.4 F L Pulse Rate 79 79 80 Respiratory Rate 21 12 22 Blood Pressure 95/73 L 98/70 L 105/75 Pulse Oximetry 98 98 99 11/26/18 04:30 04/02/18 05:00 04/02/18 05:30 Temperature Pulse Rate 79 80 80 Respiratory Rate 23 24 23 Blood Pressure 100/70 103/79 94/78 L Pulse Oximetry 98 98 99 04/02/18 06:00 04/02/18 07:00 04/02/18 08:00 Temperature Pulse Rate 85 80 85 Respiratory Rate 28 H 20 22 Blood Pressure 96/72 L 104/71 100/78 Pulse Oximetry 98 99 99 04/02/18 09:00 Temperature 97.8 F Pulse Rate 84 Respiratory Rate 22 Blood Pressure 105/66 Pulse Oximetry 99 I&O: Intake & Output 03/31/18 04/01/18 04/02/18 04/03/18 06:59 06:59 06:59 06:59 Intake Total 1161.2 / 1161.2 Output Total 240 / 240 Balance 921.2 / 921.2 Weight 71 kg Physical Exam: CONSTITUTIONAL/GENERAL: This is an adequately nourished patient, in no apparent distress. TUBES/LINES/DRAINS: peripheral IV, nasal cannula SKIN: No jaundice, rashes, or lesions. Ecchymoses on upper extremities. No wounds seen anteriorly. Skin temperature appropriate. Not diaphoretic. HEAD: Atraumatic. Normocephalic. EYES: Pupils equal and round and reactive. Extraocular motions intact. No scleral icterus. No injection or drainage. Fundi not examined. ENT: Hearing grossly normal. Nose without bleeding or purulent drainage. Throat without visible erythema, exudates, masses, or lesions. NECK: Trachea midline. Supple, nontender. No palpable thyroid enlargement or nodularity. CARDIOVASCULAR: Regular rate and rhythm without murmurs. Peripheral pulses symmetric. Left upper chest AICD RESPIRATORY/CHEST: Symmetric, unlabored respirations. Clear to auscultation. Breath sounds equal bilaterally. No wheezes, rales, or rhonchi. GASTROINTESTINAL: Abdomen soft, non-tender, nondistended. No hepato-splenomegaly , or palpable masses. No guarding. Bowel sounds present. GENITOURINARY: Without palpable bladder distension. Voids in urinal MUSCULOSKELETAL: Extremities without clubbing, cyanosis, or edema. No joint tenderness or effusion noted. No calf tenderness. No mottling or clubbing. LYMPHATICS: No palpable cervical or supraclavicular adenopathy. NEUROLOGICAL: Awake and alert. Motor and sensory grossly within normal limits. Follows commands. Cognitively sharp. Moves all extremities. PSYCHIATRIC: No obvious anxiety/depression. no apparent hallucinations or other psychotic thought process. Diagnostic Tests Laboratory: Laboratory Results - last 72 hr 04/01/18 04/01/18 04/01/18 13:37 13:37 13:37 WBC 8.3 RBC 4.49 L Hgb 14.6 Hct 41.4 MCV 92.2 MCH 32.6 MCHC 35.3 RDW 14.5 Plt Count 171 MPV 8.9 Neut % (Auto) 67.6 Lymph % (Auto) 19.1 [place] % (Auto) 7.8 Eos % (Auto) 4.5 H Baso % (Auto) 1.0 Neut # (Auto) 5.6 Lymph # (Auto) 1.6 [place] # (Auto) 0.6 Eos # (Auto) 0.4 Baso # (Auto) 0.1 WBC Differential . Differential Comment Auto diff final PT 11.4 INR 1.1 APTT 28.0 Sodium 142 Potassium 4.0 Chloride 108 H Carbon Dioxide 30.1 Anion Gap 4 L BUN 18 Creatinine 0.81 Estimated GFR Greater than 89 Random Glucose 86 Lactic Acid Calcium 7.6 L Magnesium 2.2 Total Bilirubin 0.9 AST 42 H ALT 30 Alkaline Phosphatase 68 Total Creatine Kinase 62 Troponin I Less than 0.02 L B-Natriuretic Peptide Total Protein 6.8 Albumin 3.1 L Lipase 191 Nasal Screen MRSA (PCR) 04/01/18 04/01/18 04/01/18 13:37 17:00 17:16 WBC RBC Hgb Hct MCV MCH MCHC RDW Plt Count MPV Neut % (Auto) Lymph % (Auto) [place] % (Auto) Eos % (Auto) Baso % (Auto) Neut # (Auto) Lymph # (Auto) [place] # (Auto) Eos # (Auto) Baso # (Auto) WBC Differential Differential Comment PT INR APTT Sodium Potassium Chloride Carbon Dioxide Anion Gap BUN Creatinine Estimated GFR Random Glucose Lactic Acid Calcium Magnesium Total Bilirubin AST ALT Alkaline Phosphatase Total Creatine Kinase 61 Troponin I B-Natriuretic Peptide 4308 H Total Protein Albumin Lipase Nasal Screen MRSA (PCR) Not detected 04/01/18 04/01/18 04/01/18 17:16 22:32 22:32 WBC RBC Hgb Hct MCV MCH MCHC RDW Plt Count MPV Neut % (Auto) Lymph % (Auto) [place] % (Auto) Eos % (Auto) Baso % (Auto) Neut # (Auto) Lymph # (Auto) [place] # (Auto) Eos # (Auto) Baso # (Auto) WBC Differential Differential Comment PT INR APTT 34.2 H D Sodium Potassium Chloride Carbon Dioxide Anion Gap BUN Creatinine Estimated GFR Random Glucose Lactic Acid Calcium Magnesium Total Bilirubin AST ALT Alkaline Phosphatase Total Creatine Kinase Troponin I Less than 0.02 L 0.03 B-Natriuretic Peptide Total Protein Albumin Lipase Nasal Screen MRSA (PCR) 04/02/18 04/02/18 04/02/18 03:45 03:45 03:45 WBC 10.6 RBC 4.91 Hgb 15.3 Hct 46.1 MCV 93.9 MCH 31.2 MCHC 33.2 RDW 14.7 Plt Count 165 MPV 9.1 Neut % (Auto) 77.9 H Lymph % (Auto) 12.5 [place] % (Auto) 8.6 H Eos % (Auto) 0.3 Baso % (Auto) 0.7 Neut # (Auto) 8.3 H Lymph # (Auto) 1.3 [place] # (Auto) 0.9 Eos # (Auto) 0.0 Baso # (Auto) 0.1 WBC Differential . Differential Comment Auto diff final PT INR APTT Sodium 141 Potassium 4.3 Chloride 108 H Carbon Dioxide 25.2 Anion Gap 8 BUN 23 H Creatinine 0.79 Estimated GFR Greater than 89 Random Glucose 125 H Lactic Acid 2.5 H Calcium 7.9 L Magnesium 2.3 Total Bilirubin 1.5 H AST 64 H ALT 70 Alkaline Phosphatase 73 Total Creatine Kinase Troponin I B-Natriuretic Peptide Total Protein 6.9 Albumin 3.1 L Lipase Nasal Screen MRSA (PCR) 04/02/18 03:45 WBC RBC Hgb Hct MCV MCH MCHC RDW Plt Count MPV Neut % (Auto) Lymph % (Auto) [place] % (Auto) Eos % (Auto) Baso % (Auto) Neut # (Auto) Lymph # (Auto) [place] # (Auto) Eos # (Auto) Baso # (Auto) WBC Differential Differential Comment PT INR APTT 40.8 H Sodium Potassium Chloride Carbon Dioxide Anion Gap BUN Creatinine Estimated GFR Random Glucose Lactic Acid Calcium Magnesium Total Bilirubin AST ALT Alkaline Phosphatase Total Creatine Kinase Troponin I B-Natriuretic Peptide Total Protein Albumin Lipase Nasal Screen MRSA (PCR) Result Diagrams: 04/02/18 03:45 04/02/18 03:45 Imaging: Impressions Chest X-Ray 04/01/18 13:22 CONCLUSION: 1. Cardiomegaly with subtle positive fluid balance. 2. Subtle patchy airspace disease in the right upper lung zone. Thoracic Aorta CT 04/01/18 13:37 CONCLUSION: 1. Unremarkable CTA examination of the chest, abdomen and pelvis. No significant flow-limiting lesion or aneurysm. 2. Mesenteric arteries are widely patent. 3. Clustered nodular opacities in the right suprahilar and posterior right upper lobe likely infectious/inflammatory in etiology. 4. Minimal parenchymal airspace disease and bronchiectasis at the lung bases. 5. Cardiomegaly. 6. Prominent prostate with diffuse bladder wall thickening and multiple bladder diverticula consistent with chronic bladder outlet obstruction. 7. Additional ancillary findings, as above. Patient/Family Conference Present at Family Conference: Patient's at bedside though she is sleeping during visit. Family Conference Location: Bedside Issues Discussed: * Palliative care role, purpose, approach * Additional medical, psychosocial, and spiritual history * Patients general health, functional status, and cognitive changes in the months leading up to the current hospitalization * Patient/family understanding of the current medical problems * Patient/family understanding of prognosis * Patients goals of care as best understood from advance directives and/or conversations and/or values * Current medical treatment options and benefits/burdens of those options * Likely scenarios comparing ongoing aggressive care with a transition to comfort measures only * Questions answered to the best of my ability * Palliative care contact information provided Assessment and Plan - Symptom Scale (1) Pain 0-10 Scale: Unable to quantify (2) Weakness 0-10 Scale: Unable to quantify (3) Dyspnea 0-10 Scale: Unable to quantify Pertinent Non-Medical Issues: Psychosocial: Patient was living at home with his prior to hospitalization. He was in the [place] has traveled to multiple countries. 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 He has 2 sons Spiritual: Legal: Patient is capacitated to make his own decisions at this time. Should he lose capacity, he is requesting his 2 sons be legal decision makers for him as his has dementia. Ethical issues impacting care:none Important Contacts: * Paul (pronounced Ashu) Mela (son/co-HCS) [phone] * Vandana Plaza (son/co-HCS)) [phone] * Aixa: [phone] (cell) [phone] (home) Prognosis: Given patient's current cardiac status, EF 10-15%, lack of compliance with medications and follow up, in addition to poor understanding of importance of compliance and poor overall heart function, prognosis is poor. I would anticipate in the coming weeks to months. He would be appropriate for hospice services if goals were appropriate. . Code Status: Full Code Plan: Legal decision maker: Patient is currently capacitated to make his own decisions at this time. Completed health care surrogate paperwork today with palliative care. Patient's sons Paul (pronounced Ashu) Mela and Vandana Plaza appointed co-health care surrogates. Goals: Patient remains hopeful that he will be able to return home with his . He does not appear to have good insight into his overall poor health. CODE STATUS: Remains full code, would want everything done SYMPTOMS: --Weakness: Patient reports increasing fatigue that he contributes to difficulty sleeping. He seems to have poor understanding of his heart failure and likelihood of progressive weakness and other symptoms associated with it. --Pain: Currently denies pain at this time, at risk for chest pain secondary to heart failure. Also at risk due to immobility and progressive weakness. Has history of cervical pain. Will continue to monitor. --Dyspnea: No SOB with nasal cannula in place. At risk for worsening dyspnea secondary to heart failure. Reports increasing fatigue over the past year, has EF 10-15% that will likely contribute to both dyspnea and fatigue. Will continue to monitor. Palliative care will continue to follow during hospital course as condition evolves, to assist patient/decision-maker with understanding of medical conditions, weighing benefits/burdens of treatment options, for clarification of goals of treatment. Additionally will assist with any symptoms of palliative concern Appreciation Thank you for the opportunity to participate in the care of Norberto Plaza. Attestation Attestation: To help prompt me to consider important information that might be impacting today's encounter and assessment, information from prior notes written by myself or my colleagues may have been "brought forward" into today's note. My signature on this note, however, is an attestation that I personally performed the exam, history, and/or decision-making noted today, and, unless otherwise indicated, the interactions with patient, family, and staff as well as the review of records all occurred today. I also attest that the listed assessment and stated plan reflect my best clinical judgment today based on the combination of historical information, prior notes, and today's exam/ interactions. When time spent is documented, it refers only to time spent today by the signer, or if indicated, combined time spent today by collaborating physician/nurse practitioner.
[2018-04-02] MEDS: Amiodarone 200 MG Tablet PO SCH ×2 (12:56→17:06)
[2018-04-02] MEDS: Heparin Drip 25,000 UNIT/250 ML BAG IV.CONT PRN (17:12)
[2018-04-02] MEDS: Multivitamin Inj 10 ML, Thiamine Inj 100 MG, Folic Acid Inj 1 MG in Sodium Chlor 0.9% I... IV.SIG SCH (17:28)
[2018-04-02] MEDS: Metoprolol Tartrate 25 MG Tablet PO SCH (20:07)
[2018-04-03] MEDS: Chlorhexidine Gluconate 2% 1 Pack (2 Cloths) TOPICAL SCH (04:34)
[2018-04-03 05:48] LABS: Alanine Aminotransferase 83 U/L (12-78); Alkaline Phosphatase 64 U/L (45-117); Anion Gap 8 meq/L (5-15); Aspartate Aminotransferase 67 U/L (15-37); Blood Urea Nitrogen 27 mg/dL (7-18); Carbon Dioxide 28.8 meq/L (21.0-32.0); Chloride 100 meq/L (98-107); Glomerular Filtration Rate 74 mL/min (>89); Glucose,Random 100 mg/dL (74-106); Magnesium 1.9 mg/dL (1.5-2.5); Potassium 4.4 meq/L (3.5-5.1); Sodium 137 meq/L (136-145); Total Protein 6.4 g/dL (6.4-8.2)
--- NOTE | 2018-04-03 06:56 | ECG ---
Date Performed: 04/01/2018 Time Performed: 13:18:32 PTAGE: 78 years EKG: ELECTRONIC VENTRICULAR PACEMAKER ABNORMAL RHYTHM ECG INTERPRETATION BASED ON A DEFAULT AGE OF 40 YEARS NO PREVIOUS TRACING DOCTOR: Chicho Lafleur Interpretating Date/Time 04/03/2018 06:52:55
[2018-04-03] MEDS: Senna/Docusate Sodium 8.6/50 MG Tablet PO SCH ×2 (08:04→20:24)
[2018-04-03] MEDS: Famotidine PF Inj 20 MG/2 ML Vial IV.PUSH SCH ×2 (08:04→20:24)
[2018-04-03] MEDS: Spironolactone 25 MG Tablet PO SCH ×2 (08:04→17:30)
[2018-04-03] MEDS: Amiodarone 200 MG Tablet PO SCH ×3 (08:05→17:31)
--- NOTE | 2018-04-03 14:43 | P.PNPAL ---
Reason for Visit Reason for visit: a. To assist with evaluation and management of symptoms including:pain, dyspnea b. To assist medical decision maker(s) with: better understanding of current medical conditions; weighing benefits/burdens of medical treatment options; making medical treatment decisions. Subjective Subjective/Interval History: This is an 78-year-old male who was brought to the ER 04/01/18 for his AICD firing. [place] and [place] and his pacemaker fired. Per ER documentation, his AOCD was placed about a year ago , was discharged with a 30-day supply of medications but did not follow up after he ran out. He was also on Eliquis but stopped it due to bleeding. Prior to coming to the ER, he was given 150mg Amiodarone bolus by EMS. While in the ER, he continued to have recurrent ventricular tachycardia, up to 30 beat runs, he was given an additional 150 mg bolus and placed on a heparin drip. Pacemaker was interrogated and found to be giving shocks appropriately. ER course: While in the ER, he continued to have recurrent ventricular tachycardia, up to 30 beat runs, he was given an additional 150 mg bolus and placed on a heparin drip. Pacemaker was interrogated and found to be giving shocks appropriately. Echocardiogram shows EF 15-20%. WBC 10.6, hemoglobin 15.3, hematocrit 41.6, platelets 165, sodium 141, potassium 4.3, chloride 108, carbon dioxide 25.2, BUN 23, creatinine 0.79, lactic acid 2.5, bilirubin 1.5, AST/ALT 64/70, BNP 4308 , protein 6.9, albumin 3.1, PT/INR 11.4/1.1, APTT 28. Patient remains on heparin drip in the ICU. He is initially sleeping but rouses easily. He seems somewhat SOB upon waking. He is requesting we call his sons to update them on his condition. His remains at bedside, staff report she has not left the patient's room . Briefly explored assistance with calling family to help care for the patient's . He states she would not want to leave. Discussed that he will likely remain in the hospital for several days until he is stable enough to discharge. Attempted to call patient's sons, left VM on both phones. . Advance Directives Health Care Surrogate Name and Number: Paul (pronounced Ashu)Dold & Vandana Dold (leah)[phone] Objective Vital Signs: Vital Signs 04/02/18 15:00 04/02/18 15:01 04/02/18 15:52 Temperature Pulse Rate 86 84 94 H Respiratory Rate 22 23 32 H Blood Pressure 109/80 109/80 114/87 Pulse Oximetry 99 99 99 04/02/18 16:00 04/02/18 16:01 04/02/18 16:30 Temperature 97.7 F Pulse Rate 98 H 96 H 87 Respiratory Rate 39 H 35 H 31 H Blood Pressure 123/87 123/87 108/75 Pulse Oximetry 98 97 100 04/02/18 17:00 04/02/18 17:30 04/02/18 18:00 Temperature Pulse Rate 86 90 87 Respiratory Rate 25 H 29 H 34 H Blood Pressure 108/76 110/82 104/80 Pulse Oximetry 100 93 L 100 04/02/18 18:30 04/02/18 19:00 04/02/18 19:01 Temperature Pulse Rate 83 89 87 Respiratory Rate 28 H 35 H 34 H Blood Pressure 102/79 117/76 Pulse Oximetry 100 92 L 98 04/02/18 19:30 04/02/18 20:00 04/02/18 20:30 Temperature Pulse Rate 83 84 83 Respiratory Rate 28 H 33 H 33 H Blood Pressure 105/77 102/82 108/73 Pulse Oximetry 99 100 99 04/02/18 21:00 04/02/18 21:11 04/02/18 21:30 Temperature Pulse Rate 88 86 84 Respiratory Rate 36 H 30 H 28 H Blood Pressure 104/75 108/82 Pulse Oximetry 99 98 99 04/02/18 22:00 04/02/18 22:30 04/02/18 23:00 Temperature Pulse Rate 85 84 84 Respiratory Rate 30 H 31 H 35 H Blood Pressure 110/84 110/65 111/79 Pulse Oximetry 99 100 99 04/02/18 23:30 04/03/18 00:00 04/03/18 00:30 Temperature Pulse Rate 85 83 82 Respiratory Rate 28 H 27 H 25 H Blood Pressure 107/76 111/84 106/72 Pulse Oximetry 99 98 99 04/03/18 01:00 04/03/18 01:30 04/03/18 02:00 Temperature Pulse Rate 83 84 80 Respiratory Rate 25 H 28 H 31 H Blood Pressure 106/68 104/72 105/74 Pulse Oximetry 100 98 98 04/03/18 02:30 04/03/18 03:00 04/03/18 03:30 Temperature Pulse Rate 79 75 82 Respiratory Rate 36 H 20 21 Blood Pressure 103/64 105/60 100/65 Pulse Oximetry 100 100 100 04/03/18 04:00 04/03/18 04:30 04/03/18 04:44 Temperature Pulse Rate 76 79 78 Respiratory Rate 22 24 22 Blood Pressure 101/64 100/67 Pulse Oximetry 100 100 04/03/18 05:00 04/03/18 05:30 04/03/18 06:00 Temperature Pulse Rate 80 80 80 Respiratory Rate 13 24 23 Blood Pressure 97/68 L 101/76 102/73 Pulse Oximetry 99 99 100 04/03/18 07:00 04/03/18 08:00 04/03/18 08:24 Temperature 97.8 F Pulse Rate 85 84 Respiratory Rate 28 H 26 H Blood Pressure 101/74 105/60 Pulse Oximetry 99 100 99 04/03/18 08:30 04/03/18 09:00 04/03/18 10:00 Temperature Pulse Rate 85 83 80 Respiratory Rate 16 22 22 Blood Pressure 98/73 L 104/65 Pulse Oximetry 99 98 04/03/18 11:00 04/03/18 12:00 04/03/18 13:00 Temperature 97.7 F Pulse Rate 83 79 77 Respiratory Rate 23 22 24 Blood Pressure 99/75 L 99/70 L 101/67 Pulse Oximetry 96 98 99 04/03/18 14:00 Temperature Pulse Rate 80 Respiratory Rate 22 Blood Pressure 104/65 Pulse Oximetry 97 Intake & Output 04/02/18 04/03/18 04/03/18 18:59 06:59 18:59 Intake Total 700 / 700 761.2 / 761.2 Output Total 275 / 275 1300 / 1300 Balance 425 / 425 -538.8 / -538.8 Weight 74 kg Intake: IV 250 / 250 761.2 / 761.2 Cordarone Inj 450 MG In D5W Inj 250 / 250 241 ML @ 1 MG/MIN 33.33 mls/hr IV.CONT TITRATE PRN Rx#: [id number] Heparin/D5W 25,000 U/250 mL 25, 250 / 250 000 unit In 250 ml @ Per Protocol IV.CONT TITRATE PRN Rx #:[id number] MVI-12 Inj 10 ML Thiamine Inj 511.2 / 511.2 100 MG Folvite Inj 1 MG In NS Inj 500 ML @ 125 mls/hr IV.SIG Q24H JESSICA Rx#:[id number] Oral 450 / 450 Output: Urine 275 / 275 1300 / 1300 Other: # Voids 5 Date of Last Bowel Movement 03/31/18 03/31/18 03/31/18 # Bowel Movements 0 Physical Exam: CONSTITUTIONAL/GENERAL: This is an adequately nourished patient, in no apparent distress. TUBES/LINES/DRAINS: peripheral IV, nasal cannula SKIN: No jaundice, rashes, or lesions. Ecchymoses on upper extremities. No wounds seen anteriorly. Skin temperature appropriate. Not diaphoretic. HEAD: Atraumatic. Normocephalic. EYES: Pupils equal and round and reactive. Extraocular motions intact. No scleral icterus. No injection or drainage. Fundi not examined. ENT: Hearing grossly normal. Nose without bleeding or purulent drainage. Throat without visible erythema, exudates, masses, or lesions. NECK: Trachea midline. Supple, nontender. No palpable thyroid enlargement or nodularity. CARDIOVASCULAR: Regular rate and rhythm without murmurs. Peripheral pulses symmetric. Left upper chest AICD RESPIRATORY/CHEST: Symmetric, unlabored respirations. Clear to auscultation. Breath sounds equal bilaterally. No wheezes, rales, or rhonchi. GASTROINTESTINAL: Abdomen soft, non-tender, nondistended. No hepato-splenomegaly , or palpable masses. No guarding. Bowel sounds present. GENITOURINARY: Without palpable bladder distension. Voids in urinal MUSCULOSKELETAL: Extremities without clubbing, cyanosis, or edema. No joint tenderness or effusion noted. No calf tenderness. No mottling or clubbing. LYMPHATICS: No palpable cervical or supraclavicular adenopathy. NEUROLOGICAL: Awake and alert. Motor and sensory grossly within normal limits. Follows commands. Cognitively sharp. Moves all extremities. PSYCHIATRIC: No obvious anxiety/depression. no apparent hallucinations or other psychotic thought process. Diagnostic Tests Laboratory: Laboratory Results - last 72 hr 04/01/18 04/01/18 04/01/18 13:37 13:37 13:37 WBC 8.3 RBC 4.49 L Hgb 14.6 Hct 41.4 MCV 92.2 MCH 32.6 MCHC 35.3 RDW 14.5 Plt Count 171 MPV 8.9 Neut % (Auto) 67.6 Lymph % (Auto) 19.1 Barnwell % (Auto) 7.8 Eos % (Auto) 4.5 H Baso % (Auto) 1.0 Neut # (Auto) 5.6 Lymph # (Auto) 1.6 Barnwell # (Auto) 0.6 Eos # (Auto) 0.4 Baso # (Auto) 0.1 WBC Differential . Differential Comment Auto diff final PT 11.4 INR 1.1 APTT 28.0 Sodium 142 Potassium 4.0 Chloride 108 H Carbon Dioxide 30.1 Anion Gap 4 L BUN 18 Creatinine 0.81 Estimated GFR Greater than 89 Random Glucose 86 Lactic Acid Calcium 7.6 L Magnesium 2.2 Total Bilirubin 0.9 AST 42 H ALT 30 Alkaline Phosphatase 68 Total Creatine Kinase 62 Troponin I Less than 0.02 L B-Natriuretic Peptide Total Protein 6.8 Albumin 3.1 L Lipase 191 Nasal Screen MRSA (PCR) 04/01/18 04/01/18 04/01/18 13:37 17:00 17:16 WBC RBC Hgb Hct MCV MCH MCHC RDW Plt Count MPV Neut % (Auto) Lymph % (Auto) Barnwell % (Auto) Eos % (Auto) Baso % (Auto) Neut # (Auto) Lymph # (Auto) Barnwell # (Auto) Eos # (Auto) Baso # (Auto) WBC Differential Differential Comment PT INR APTT Sodium Potassium Chloride Carbon Dioxide Anion Gap BUN Creatinine Estimated GFR Random Glucose Lactic Acid Calcium Magnesium Total Bilirubin AST ALT Alkaline Phosphatase Total Creatine Kinase 61 Troponin I B-Natriuretic Peptide 4308 H Total Protein Albumin Lipase Nasal Screen MRSA (PCR) Not detected 04/01/18 04/01/18 04/01/18 17:16 22:32 22:32 WBC RBC Hgb Hct MCV MCH MCHC RDW Plt Count MPV Neut % (Auto) Lymph % (Auto) Barnwell % (Auto) Eos % (Auto) Baso % (Auto) Neut # (Auto) Lymph # (Auto) Barnwell # (Auto) Eos # (Auto) Baso # (Auto) WBC Differential Differential Comment PT INR APTT 34.2 H D Sodium Potassium Chloride Carbon Dioxide Anion Gap BUN Creatinine Estimated GFR Random Glucose Lactic Acid Calcium Magnesium Total Bilirubin AST ALT Alkaline Phosphatase Total Creatine Kinase Troponin I Less than 0.02 L 0.03 B-Natriuretic Peptide Total Protein Albumin Lipase Nasal Screen MRSA (PCR) 04/02/18 04/02/18 04/02/18 03:45 03:45 03:45 WBC 10.6 RBC 4.91 Hgb 15.3 Hct 46.1 MCV 93.9 MCH 31.2 MCHC 33.2 RDW 14.7 Plt Count 165 MPV 9.1 Neut % (Auto) 77.9 H Lymph % (Auto) 12.5 Barnwell % (Auto) 8.6 H Eos % (Auto) 0.3 Baso % (Auto) 0.7 Neut # (Auto) 8.3 H Lymph # (Auto) 1.3 Barnwell # (Auto) 0.9 Eos # (Auto) 0.0 Baso # (Auto) 0.1 WBC Differential . Differential Comment Auto diff final PT INR APTT Sodium 141 Potassium 4.3 Chloride 108 H Carbon Dioxide 25.2 Anion Gap 8 BUN 23 H Creatinine 0.79 Estimated GFR Greater than 89 Random Glucose 125 H Lactic Acid 2.5 H Calcium 7.9 L Magnesium 2.3 Total Bilirubin 1.5 H AST 64 H ALT 70 Alkaline Phosphatase 73 Total Creatine Kinase Troponin I B-Natriuretic Peptide Total Protein 6.9 Albumin 3.1 L Lipase Nasal Screen MRSA (PCR) 04/02/18 04/02/18 04/02/18 03:45 11:16 15:58 WBC RBC Hgb Hct MCV MCH MCHC RDW Plt Count MPV Neut % (Auto) Lymph % (Auto) Barnwell % (Auto) Eos % (Auto) Baso % (Auto) Neut # (Auto) Lymph # (Auto) Barnwell # (Auto) Eos # (Auto) Baso # (Auto) WBC Differential Differential Comment PT INR APTT 40.8 H 38.6 H Sodium Potassium Chloride Carbon Dioxide Anion Gap BUN Creatinine Estimated GFR Random Glucose Lactic Acid Calcium Magnesium Total Bilirubin AST ALT Alkaline Phosphatase Total Creatine Kinase Troponin I Less than 0.02 L B-Natriuretic Peptide Total Protein Albumin Lipase Nasal Screen MRSA (PCR) 04/02/18 04/03/18 04/03/18 22:53 04:11 04:11 WBC RBC Hgb Hct MCV MCH MCHC RDW Plt Count MPV Neut % (Auto) Lymph % (Auto) Barnwell % (Auto) Eos % (Auto) Baso % (Auto) Neut # (Auto) Lymph # (Auto) Barnwell # (Auto) Eos # (Auto) Baso # (Auto) WBC Differential Differential Comment PT INR APTT 45.6 H 44.6 H Sodium 137 Potassium 4.4 Chloride 100 D Carbon Dioxide 28.8 Anion Gap 8 BUN 27 H Creatinine 0.97 Estimated GFR 74 L Random Glucose 100 Lactic Acid Calcium 8.0 L Magnesium 1.9 Total Bilirubin 2.0 H AST 67 H ALT 83 H Alkaline Phosphatase 64 Total Creatine Kinase Troponin I B-Natriuretic Peptide Total Protein 6.4 Albumin 3.0 L Lipase Nasal Screen MRSA (PCR) Result Diagrams: 04/02/18 03:45 04/03/18 04:11 Assessment and Plan - Symptom Scale (1) Pain 0-10 Scale: Unable to quantify (2) Weakness 0-10 Scale: Unable to quantify (3) Dyspnea 0-10 Scale: Unable to quantify Pertinent Non-Medical Issues: Psychosocial: Patient was living at home with his prior to hospitalization. He was in the [place] has traveled to multiple countries. 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 He has 2 sons e decisions. Carly's has dementia and is stranded in the hospital with the patient, SW to speak with CM. Spiritual: Legal: Patient is capacitated to make his own decisions at this time. Should he lose capacity, he is requesting his 2 sons be legal decision makers for him as his has dementia. Ethical issues impacting care:none Important Contacts: * Paul (pronounced Ashu) Mela (son/co-HCS) [phone] * Vandanabelle Plaza (son/co-HCS)) [phone] * Aixa: [phone] (cell) [phone] (home) Prognosis: Given patient's current cardiac status, EF 10-15%, lack of compliance with medications and follow up, in addition to poor understanding of importance of compliance and poor overall heart function, prognosis is poor. I would anticipate in the coming weeks to months. He would be appropriate for hospice services if goals were appropriate. . Code Status: Full Code Plan: Legal decision maker: Patient is currently capacitated to make his own decisions at this time. Completed health care surrogate paperwork today with palliative care. Patient's sons Paul (pronounced Ashu) Dolmichelle and Vandana Plaza appointed co-health care surrogates. Updated CM regarding being stranded at hospital. She has dementia and does not drive. SW speaking with CM. Goals: Patient remains hopeful that he will be able to return home with his . He does not appear to have good insight into his overall poor health. CODE STATUS: Remains full code, would want everything done SYMPTOMS: --Weakness: Patient reports increasing fatigue that he contributes to difficulty sleeping. He seems to have poor understanding of his heart failure and likelihood of progressive weakness and other symptoms associated with it. --Pain: Currently denies pain at this time, at risk for chest pain secondary to heart failure. Also at risk due to immobility and progressive weakness. Has history of cervical pain. Will continue to monitor. --Dyspnea: No SOB with nasal cannula in place. At risk for worsening dyspnea secondary to heart failure. Reports increasing fatigue over the past year, has EF 10-15% that will likely contribute to both dyspnea and fatigue. Will continue to monitor. Palliative care will continue to follow during hospital course as condition evolves, to assist patient/decision-maker with understanding of medical conditions, weighing benefits/burdens of treatment options, for clarification of goals of treatment. Additionally will assist with any symptoms of palliative concern Attestation Attestation: To help prompt me to consider important information that might be impacting today's encounter and assessment, information from prior notes written by myself or my colleagues may have been "brought forward" into today's note. My signature on this note, however, is an attestation that I personally performed the exam, history, and/or decision-making noted today, and, unless otherwise indicated, the interactions with patient, family, and staff as well as the review of records all occurred today. I also attest that the listed assessment and stated plan reflect my best clinical judgment today based on the combination of historical information, prior notes, and today's exam/ interactions. When time spent is documented, it refers only to time spent today by the signer, or if indicated, combined time spent today by collaborating physician/nurse practitioner.
--- NOTE | 2018-04-03 16:30 | P.PNPAL ---
Palliative care continues to follow along with Mr. Plaza. It was further identified that patient's has been staying with him at the hospital since admission. has dementia and has been found wandering around various areas of the hospital, easily confused. Nursing staff has had to redirect and assist with getting her back to patient's room. Reached out to case picker for guidance. Patient has been reluctant to provide additional family information as he has always been the caregiver for his and she refuses to leave his side. Reports patient and his are both seen by Dr. Winston Richey. Spoke with patient and , also present Cipriano Robins APRN and Karli Odonnell APRN. Discussed is unable to stay at the hospital 28/11 as patient is currently in intensive care per policy and concern for 's well-being and safety. Offered to speak with family to assist with plan for to visit during the day and go home with family at night. Patient offered up 's son's contact information: * Braeden ernesto Philly Coello: [phone]-- live locally on [address]. Spoke with Philly Coello and explained above. She was under the impression 's daughter, Che, was assisting with her care. Philly reports she will speak with family tonight to come up with a plan to get from the hospital tonight. 428pm-- received call back from Philly. Family will be picking up patient's tonight. Report she will be able to stay with them and they will assist with getting her to and from the hospital for visits. Offered family meeting tomorrow to assist with plan development to make sure patient and are safe and well taken care of. Explained additional community resource agencies may be notified to ensure support is offered. RN updated. Palliative care will continue to follow throughout hospitalization.
[2018-04-03] MEDS: Multivitamin Inj 10 ML, Thiamine Inj 100 MG, Folic Acid Inj 1 MG in Sodium Chlor 0.9% I... IV.SIG SCH (17:55)
[2018-04-03] MEDS: Heparin Drip 25,000 UNIT/250 ML BAG IV.CONT PRN (18:01)
--- NOTE | 2018-04-03 19:24 | P.PNIM ---
Subjective Interval history: Patient is in no acute distress currently. He denies any chest pain, no palpitations. Physical Exam Vital signs: Vital Signs 04/02/18 19:30 04/02/18 20:00 04/02/18 20:30 Temperature Pulse Rate 83 84 83 Respiratory Rate 28 H 33 H 33 H Blood Pressure 105/77 102/82 108/73 Pulse Oximetry 99 100 99 04/02/18 21:00 04/02/18 21:11 04/02/18 21:30 Temperature Pulse Rate 88 86 84 Respiratory Rate 36 H 30 H 28 H Blood Pressure 104/75 108/82 Pulse Oximetry 99 98 99 04/02/18 22:00 04/02/18 22:30 04/02/18 23:00 Temperature Pulse Rate 85 84 84 Respiratory Rate 30 H 31 H 35 H Blood Pressure 110/84 110/65 111/79 Pulse Oximetry 99 100 99 04/02/18 23:30 04/03/18 00:00 04/03/18 00:30 Temperature Pulse Rate 85 83 82 Respiratory Rate 28 H 27 H 25 H Blood Pressure 107/76 111/84 106/72 Pulse Oximetry 99 98 99 04/03/18 01:00 04/03/18 01:30 04/03/18 02:00 Temperature Pulse Rate 83 84 80 Respiratory Rate 25 H 28 H 31 H Blood Pressure 106/68 104/72 105/74 Pulse Oximetry 100 98 98 04/03/18 02:30 04/03/18 03:00 04/03/18 03:30 Temperature Pulse Rate 79 75 82 Respiratory Rate 36 H 20 21 Blood Pressure 103/64 105/60 100/65 Pulse Oximetry 100 100 100 04/03/18 04:00 04/03/18 04:30 04/03/18 04:44 Temperature Pulse Rate 76 79 78 Respiratory Rate 22 24 22 Blood Pressure 101/64 100/67 Pulse Oximetry 100 100 04/03/18 05:00 04/03/18 05:30 04/03/18 06:00 Temperature Pulse Rate 80 80 80 Respiratory Rate 13 24 23 Blood Pressure 97/68 L 101/76 102/73 Pulse Oximetry 99 99 100 04/03/18 07:00 04/03/18 08:00 04/03/18 08:24 Temperature 97.8 F Pulse Rate 85 84 Respiratory Rate 28 H 26 H Blood Pressure 101/74 105/60 Pulse Oximetry 99 100 99 11/27/18 08:30 04/03/18 09:00 04/03/18 10:00 Temperature Pulse Rate 85 83 80 Respiratory Rate 16 22 22 Blood Pressure 98/73 L 104/65 Pulse Oximetry 99 98 04/03/18 11:00 04/03/18 12:00 04/03/18 13:00 Temperature 97.7 F Pulse Rate 83 79 77 Respiratory Rate 23 22 24 Blood Pressure 99/75 L 99/70 L 101/67 Pulse Oximetry 96 98 99 04/03/18 14:00 04/03/18 15:00 04/03/18 16:00 Temperature Pulse Rate 80 83 81 Respiratory Rate 22 22 24 Blood Pressure 104/65 99/70 L 108/71 Pulse Oximetry 97 99 98 04/03/18 16:02 04/03/18 17:00 04/03/18 18:00 Temperature 98.3 F Pulse Rate 82 85 91 H Respiratory Rate 18 24 26 H Blood Pressure 102/74 118/75 Pulse Oximetry 98 100 Intake & Output 04/03/18 04/03/18 04/04/18 06:59 18:59 06:59 Intake Total 761.2 / 761.2 750 / 750 Output Total 1300 / 1300 900 / 900 Balance -538.8 / -538.8 -150 / -150 Weight 74 kg Intake: IV 761.2 / 761.2 250 / 250 Cordarone Inj 450 MG In D5W Inj 250 / 250 241 ML @ 1 MG/MIN 33.33 mls/hr IV.CONT TITRATE PRN Rx#: [id number] Heparin/D5W 25,000 U/250 mL 25, 250 / 250 000 unit In 250 ml @ Per Protocol IV.CONT TITRATE PRN Rx #:[id number] MVI-12 Inj 10 ML Thiamine Inj 511.2 / 511.2 100 MG Folvite Inj 1 MG In NS Inj 500 ML @ 125 mls/hr IV.SIG Q24H JESSICA Rx#:[id number] Oral 500 / 500 Output: Urine 1300 / 1300 900 / 900 Other: # Voids 8 Date of Last Bowel Movement 03/31/18 03/31/18 # Bowel Movements 0 Narrative: General patient in no acute distress as of now. No chest pain, no palpitations. HEENT extraocular movements are intact, clear oropharyngeal mucosa, no JVD Cardiovascular S1-S2 audible Respiratory clear to auscultation bilaterally Abdomen soft, nontender, nondistended, normal bowel sounds Extremities no edema 2+ distal pulses in bilateral upper and lower extremities Neuro patient can move all 4 extremities, sensation is intact bilaterally. Results - Labs CBC & Chem 7: 04/02/18 03:45 04/03/18 04:11 Laboratory Results - last 24 hr 04/02/18 04/03/18 04/03/18 22:53 04:11 04:11 APTT 45.6 H 44.6 H Sodium 137 Potassium 4.4 Chloride 100 D Carbon Dioxide 28.8 Anion Gap 8 BUN 27 H Creatinine 0.97 Estimated GFR 74 L Random Glucose 100 Calcium 8.0 L Magnesium 1.9 Total Bilirubin 2.0 H AST 67 H ALT 83 H Alkaline Phosphatase 64 Total Protein 6.4 Albumin 3.0 L Assessment and Plan - Plan This patient is an 78-year-old male with a diagnosis of TIA, AICD placement approximately 1 year ago for ventricular tachycardia/fibrillation. The patient presented to the emergency department for evaluation after his AICD fired. The patient's accounting supervisor is Dr. Kramer. The patient was walking in the park when he felt dizzy and his AICD then fired. During that time the patient was found to be in V. tach. Apparently the patient will had not taken his medications because his meds ran out. Patient's pacemaker was interrogated in the emergency department and the patient was re-bolused with amiodarone and amiodarone infusion was started. The patient has severe systolic cardia myopathy with ejection fraction approximately 20%. Patient was subsequently admitted to the intensive care unit for closer monitoring. 1. Recurrent symptomatic sustained ventricular tachycardia 2. 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 Severe mitral regurgitation As mentioned above the patient has an AICD in place which fired appropriately. Patient is currently stable on amiodarone, Coreg. The patient has severe systolic heart failure with an ejection fraction of 15% and severe mitral regurg. He has a high risk of recurrent arrhythmias given his dilated cardiomyopathy. Continue aspirin, beta-tamica, Aldactone, Bumex. Patient is a poor candidate for heart transplant. Palliative care was consulted to evaluate the patient. Possible family meeting with the patient and his family tomorrow. We will continue with medical management for now. Cardiology following the patient. Patient is currently on heparin ip as per cardiology's recommendations. Continue to monitor on telemetry, telemetry was evaluated no significant events noted on telemetry.
[2018-04-04] MEDS: Chlorhexidine Gluconate 2% 1 Pack (2 Cloths) TOPICAL SCH (04:00)
[2018-04-04] MEDS: Famotidine PF Inj 20 MG/2 ML Vial IV.PUSH SCH ×2 (08:41→21:02)
[2018-04-04] MEDS: Amiodarone 200 MG Tablet PO SCH ×3 (08:41→18:06)
[2018-04-04] MEDS: Senna/Docusate Sodium 8.6/50 MG Tablet PO SCH ×2 (08:42→21:01)
--- NOTE | 2018-04-04 09:28 | P.PNIM ---
Subjective Interval history: Patient in no acute distress. No palpitations or chest pain overnight. Physical Exam Vital signs: Vital Signs 04/03/18 10:00 04/03/18 11:00 04/03/18 12:00 Temperature 97.7 F Pulse Rate 80 83 79 Respiratory Rate 22 23 22 Blood Pressure 104/65 99/75 L 99/70 L Pulse Oximetry 98 96 98 04/03/18 13:00 04/03/18 14:00 04/03/18 15:00 Temperature Pulse Rate 77 80 83 Respiratory Rate 24 22 22 Blood Pressure 101/67 104/65 99/70 L Pulse Oximetry 99 97 99 04/03/18 16:00 04/03/18 16:02 04/03/18 17:00 Temperature 98.3 F Pulse Rate 81 82 85 Respiratory Rate 24 18 24 Blood Pressure 108/71 102/74 Pulse Oximetry 98 98 04/03/18 18:00 04/03/18 19:00 04/03/18 19:03 Temperature Pulse Rate 91 H 92 H 90 Respiratory Rate 26 H 39 H 29 H Blood Pressure 118/75 99/65 L Pulse Oximetry 100 91 L 96 04/03/18 19:30 04/03/18 20:00 04/03/18 20:03 Temperature Pulse Rate 86 90 86 Respiratory Rate 21 23 25 H Blood Pressure 104/73 109/73 110/75 Pulse Oximetry 95 91 L 95 04/03/18 20:30 04/03/18 21:00 04/03/18 21:01 Temperature Pulse Rate 87 84 83 Respiratory Rate 28 H 26 H 28 H Blood Pressure 120/79 Pulse Oximetry 95 96 96 04/03/18 21:30 04/03/18 22:00 04/03/18 22:30 Temperature Pulse Rate 80 80 82 Respiratory Rate 27 H 33 H 34 H Blood Pressure 105/76 101/67 99/72 L Pulse Oximetry 100 99 96 04/03/18 23:00 04/03/18 23:08 04/03/18 23:30 Temperature Pulse Rate 80 79 80 Respiratory Rate 27 H 25 H 35 H Blood Pressure 88/56 L 98/59 L Pulse Oximetry 100 99 99 04/04/18 00:00 04/04/18 00:07 04/04/18 00:31 Temperature 97.8 F Pulse Rate 86 84 79 Respiratory Rate 39 H 34 H 26 H Blood Pressure 118/91 H 103/55 L Pulse Oximetry 91 L 94 L 99 04/04/18 01:00 04/04/18 01:01 04/04/18 01:30 Temperature Pulse Rate 74 74 77 Respiratory Rate 22 22 23 Blood Pressure 82/51 L 89/62 L Pulse Oximetry 100 100 99 04/04/18 02:00 04/04/18 02:31 04/04/18 03:00 Temperature Pulse Rate 78 78 76 Respiratory Rate 22 22 23 Blood Pressure 89/64 L 81/53 L 95/68 L Pulse Oximetry 96 97 96 04/04/18 03:31 04/04/18 04:00 04/04/18 04:11 Temperature Pulse Rate 82 85 84 Respiratory Rate 44 H 29 H 31 H Blood Pressure 121/73 120/72 Pulse Oximetry 95 97 98 04/04/18 04:26 04/04/18 04:30 04/04/18 05:00 Temperature Pulse Rate 83 80 75 Respiratory Rate 22 32 H 19 Blood Pressure 112/75 120/70 Pulse Oximetry 99 97 04/04/18 05:30 04/04/18 06:00 04/04/18 06:30 Temperature Pulse Rate 76 74 78 Respiratory Rate 19 18 25 H Blood Pressure 120/72 104/66 117/65 Pulse Oximetry 96 97 98 04/04/18 07:00 04/04/18 07:30 04/04/18 08:00 Temperature 97.6 F Pulse Rate 75 79 79 Respiratory Rate 15 20 23 Blood Pressure 108/65 104/74 100/73 Pulse Oximetry 97 96 99 04/04/18 08:26 04/04/18 08:30 04/04/18 09:00 Temperature Pulse Rate 81 74 87 Respiratory Rate 25 H 21 27 H Blood Pressure 103/68 Pulse Oximetry 98 99 98 Intake & Output 04/03/18 04/04/18 04/04/18 18:59 06:59 18:59 Intake Total 750 / 750 250 / 250 125 / 125 Output Total 900 / 900 950 / 950 Balance -150 / -150 -700 / -700 125 / 125 Weight 75 kg Intake: IV 250 / 250 125 / 125 Heparin/D5W 25,000 U/250 mL 25, 250 / 250 125 / 125 000 unit In 250 ml @ Per Protocol IV.CONT TITRATE PRN Rx #:[id number] Oral 500 / 500 250 / 250 Output: Urine 900 / 900 950 / 950 Other: # Voids 8 Date of Last Bowel Movement 03/31/18 04/04/18 04/04/18 # Bowel Movements 0 3 Narrative: General patient in no acute distress as of now. No chest pain, no palpitations. HEENT extraocular movements are intact, clear oropharyngeal mucosa, no JVD Cardiovascular S1-S2 audible Respiratory clear to auscultation bilaterally Abdomen soft, nontender, nondistended, normal bowel sounds Extremities no edema 2+ distal pulses in bilateral upper and lower extremities Neuro patient can move all 4 extremities, sensation is intact bilaterally. Results - Labs CBC & Chem 7: 04/02/18 03:45 04/03/18 04:11 Assessment and Plan - Plan This patient is an 78-year-old male with a diagnosis of TIA, AICD placement approximately 1 year ago for ventricular tachycardia/fibrillation. The patient presented to the emergency department for evaluation after his AICD fired. The patient's hospitality director is Dr. Kramer. The patient was walking in the park when he felt dizzy and his AICD then fired. During that time the patient was found to be in V. tach. Apparently the patient will had not taken his medications because his meds ran out. Patient's pacemaker was interrogated in the emergency department and the patient was re-bolused with amiodarone and amiodarone infusion was started. The patient has severe systolic cardia myopathy with ejection fraction approximately 20%. Patient was subsequently admitted to the intensive care unit for closer monitoring. 1. Recurrent symptomatic sustained ventricular tachycardia 2. 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 Severe mitral regurgitation As mentioned above the patient has an AICD in place which fired appropriately. Patient is currently stable on amiodarone, Coreg. The patient has severe systolic heart failure with an ejection fraction of 15% and severe mitral regurg. He has a high risk of recurrent arrhythmias given his dilated cardiomyopathy. Continue aspirin, beta-tamica, Bumex, aldactone stopped by cardiology. Patient is a poor candidate for heart transplant. Palliative care was consulted to evaluate the patient. Possible family meeting with the patient and his family today. We will continue with medical management for now. I will follow up with Dr. Kramer today from cardiology as far as discharge planning goes. Cardiology following the patient. Patient now on eliquis. Heparin gtt stopped. Continue to monitor on telemetry, telemetry was evaluated no significant events noted on telemetry.
[2018-04-04 10:12] LABS: Baso % (Auto) 0.4 % (0.0-2.0); Eos % (Auto) 0.1 % (0.0-4.0); Hematocrit 39.7 % (39.0-51.0); Hemoglobin 13.5 gm/dL (13.0-17.0); Lymph % (Auto) 9.3 % (9.0-44.0); Mean Corpuscular Hemoglobin 31.3 pg (27.0-34.0); Mean Corpuscular Volume 91.9 fL (80.0-100.0); Mean Platelet Volume 10.2 fL (7.0-11.0); Mono # (Auto) 0.8 th/mm3 (0.0-0.9); Mono % (Auto) 7.5 % (0.0-8.0); Neut # (Auto) 8.5 th/mm3 (1.8-7.7); Neut % (Auto) 82.7 % (16.0-70.0); Platelet Count 174 th/mm3 (150-450); Red Blood Count 4.32 mil/mm3 (4.50-5.90); Red Cell Distribution Width 14.2 % (11.6-17.2); White Blood Count 10.3 th/mm3 (4.0-11.0)
[2018-04-04 10:33] LABS: Calcium 8.1 mg/dL (8.5-10.1); Carbon Dioxide 29.9 meq/L (21.0-32.0); Potassium 3.9 meq/L (3.5-5.1)
--- NOTE | 2018-04-04 14:06 | P.PNPAL ---
Palliative care spoke with [id number] ('s daughter) Che ). Confirms patient's is going to be living with her until patient is able to come home (address [address] [place], [place]) and someone will always be with her. States she will be assisting in caring for patient and . Offered to provide her with community resources to assist with options regarding care for patient and moving forward after hospitalization. Goals remain aggressive at this time. Palliative care will continue to follow throughout hospitalization.
[2018-04-05] MEDS: Chlorhexidine Gluconate 2% 1 Pack (2 Cloths) TOPICAL SCH (05:57)
--- NOTE | 2018-04-05 07:43 | P.PNIM ---
Subjective Interval history: Patient in no acute distress. No chest pain or palpitations overnight. Physical Exam Vital signs: Vital Signs 04/04/18 08:00 04/04/18 08:26 04/04/18 08:30 Temperature 97.6 F Pulse Rate 79 81 74 Respiratory Rate 23 25 H 21 Blood Pressure 100/73 103/68 Pulse Oximetry 99 98 99 04/04/18 09:00 04/04/18 09:03 04/04/18 09:30 Temperature Pulse Rate 79 81 79 Respiratory Rate 27 H 27 H 20 Blood Pressure 110/75 112/75 Pulse Oximetry 98 98 95 04/04/18 10:00 04/04/18 10:30 04/04/18 11:00 Temperature Pulse Rate 79 75 73 Respiratory Rate 25 H 23 19 Blood Pressure 110/71 96/75 L 102/65 Pulse Oximetry 91 L 99 98 04/04/18 11:30 04/04/18 12:00 04/04/18 12:39 Temperature 97.8 F Pulse Rate 73 74 77 Respiratory Rate 17 17 24 Blood Pressure 101/61 102/64 109/62 Pulse Oximetry 98 99 100 04/04/18 13:00 04/04/18 13:30 04/04/18 13:35 Temperature Pulse Rate 78 77 78 Respiratory Rate 16 25 H 26 H Blood Pressure 108/66 101/62 110/70 Pulse Oximetry 98 99 98 04/04/18 14:00 04/04/18 14:30 04/04/18 14:57 Temperature Pulse Rate 69 67 69 Respiratory Rate 27 H 21 23 Blood Pressure 86/54 L 89/50 L Pulse Oximetry 98 99 04/04/18 15:00 04/04/18 15:06 04/04/18 15:30 Temperature Pulse Rate 67 65 64 Respiratory Rate 19 20 19 Blood Pressure 86/55 L 85/53 L 88/59 L Pulse Oximetry 100 100 99 04/04/18 16:00 04/04/18 16:30 04/04/18 17:00 Temperature 97.7 F Pulse Rate 70 65 67 Respiratory Rate 26 H 26 H 21 Blood Pressure 104/55 L 87/52 L 90/55 L Pulse Oximetry 99 100 99 04/04/18 17:30 04/04/18 18:00 04/04/18 18:30 Temperature Pulse Rate 69 80 69 Respiratory Rate 20 20 23 Blood Pressure 94/55 L 100/58 L 92/52 L Pulse Oximetry 100 95 96 04/04/18 19:00 04/04/18 19:06 04/04/18 19:30 Temperature Pulse Rate 64 69 71 Respiratory Rate 20 19 20 Blood Pressure 81/47 L 81/50 L 88/57 L Pulse Oximetry 95 87 L 97 04/04/18 19:47 04/04/18 20:00 04/04/18 20:30 Temperature 97.7 F Pulse Rate 73 76 74 Respiratory Rate 16 21 27 H Blood Pressure 91/56 L 101/54 L Pulse Oximetry 96 97 96 04/04/18 21:00 04/04/18 21:03 04/04/18 21:07 Temperature Pulse Rate 72 74 73 Respiratory Rate 22 26 H 24 Blood Pressure 95/61 L 90/61 L 96/60 L Pulse Oximetry 97 95 81 L 04/04/18 21:30 04/04/18 22:00 04/04/18 22:33 Temperature Pulse Rate 71 72 77 Respiratory Rate 21 20 29 H Blood Pressure 96/60 L 95/58 L 95/55 L Pulse Oximetry 97 96 95 04/04/18 23:00 04/04/18 23:30 04/05/18 00:00 Temperature 97.7 F Pulse Rate 73 79 84 Respiratory Rate 25 H 20 35 H Blood Pressure 88/63 L 95/64 L Pulse Oximetry 93 L 95 94 L 04/05/18 00:01 04/05/18 00:30 04/05/18 00:58 Temperature Pulse Rate 83 74 Respiratory Rate 30 H 20 Blood Pressure 92/66 L 95/61 L Pulse Oximetry 94 L 95 94 L 04/05/18 01:00 04/05/18 01:30 04/05/18 02:00 Temperature Pulse Rate 71 69 73 Respiratory Rate 18 34 H 24 Blood Pressure 98/63 L 91/60 L Pulse Oximetry 94 L 93 L 95 04/05/18 02:13 04/05/18 02:31 04/05/18 03:00 Temperature Pulse Rate 70 71 70 Respiratory Rate 18 22 39 H Blood Pressure 93/60 L 98/55 L Pulse Oximetry 95 92 L 88 L 04/05/18 03:03 04/05/18 03:30 04/05/18 03:44 Temperature Pulse Rate 68 85 72 Respiratory Rate 33 H 25 H 16 Blood Pressure 99/62 L 112/63 Pulse Oximetry 93 L 93 L 04/05/18 04:00 04/05/18 04:30 04/05/18 05:00 Temperature 97.7 F Pulse Rate 69 70 71 Respiratory Rate 22 17 25 H Blood Pressure 95/60 L 102/58 L Pulse Oximetry 95 95 96 04/05/18 05:01 04/05/18 05:30 04/05/18 06:00 Temperature Pulse Rate 77 71 72 Respiratory Rate 30 H 23 29 H Blood Pressure 106/56 L 111/62 99/65 L Pulse Oximetry 94 L 91 L 92 L 04/05/18 06:30 Temperature Pulse Rate 72 Respiratory Rate 21 Blood Pressure 101/68 Pulse Oximetry 92 L Intake & Output 04/04/18 04/05/18 04/05/18 18:59 06:59 18:59 Intake Total 875 / 875 100 / 100 Output Total 1100 / 1100 1600 / 1600 Balance -225 / -225 -1500 / -1500 Weight 72.7 kg Intake: IV 125 / 125 Heparin/D5W 25,000 U/250 mL 25, 125 / 125 000 unit In 250 ml @ Per Protocol IV.CONT TITRATE PRN Rx #:[id number] Oral 750 / 750 100 / 100 Output: Urine 1100 / 1100 1600 / 1600 Other: Date of Last Bowel Movement 04/04/18 04/04/18 Narrative: General patient in no acute distress as of now. No chest pain, no palpitations. HEENT extraocular movements are intact, clear oropharyngeal mucosa, no JVD Cardiovascular S1-S2 audible Respiratory clear to auscultation bilaterally Abdomen soft, nontender, nondistended, normal bowel sounds Extremities no edema 2+ distal pulses in bilateral upper and lower extremities Neuro patient can move all 4 extremities, sensation is intact bilaterally. Results - Labs CBC & Chem 7: 04/04/18 09:23 04/04/18 09:23 Laboratory Results - last 24 hr 04/04/18 04/04/18 04/04/18 09:23 09:23 09:23 WBC 10.3 RBC 4.32 L Hgb 13.5 Hct 39.7 MCV 91.9 MCH 31.3 MCHC 34.0 RDW 14.2 Plt Count 174 MPV 10.2 Neut % (Auto) 82.7 H Lymph % (Auto) 9.3 [place] % (Auto) 7.5 Eos % (Auto) 0.1 Baso % (Auto) 0.4 Neut # (Auto) 8.5 H Lymph # (Auto) 1.0 [place] # (Auto) 0.8 Eos # (Auto) 0.0 Baso # (Auto) 0.0 WBC Differential . Differential Comment Auto diff final APTT 31.5 D Sodium 135 L Potassium 3.9 Chloride 98 Carbon Dioxide 29.9 Anion Gap 7 BUN 32 H Creatinine 0.98 Estimated GFR 74 L Random Glucose 107 H Calcium 8.1 L Assessment and Plan - Plan This patient is an 78-year-old male with a diagnosis of TIA, AICD placement approximately 1 year ago for ventricular tachycardia/fibrillation. The patient presented to the emergency department for evaluation after his AICD fired. The patient's instrument maker is Dr. Kramer. The patient was walking in the park when he felt dizzy and his AICD then fired. During that time the patient was found to be in V. tach. Apparently the patient will had not taken his medications because his meds ran out. Patient's pacemaker was interrogated in the emergency department and the patient was re-bolused with amiodarone and amiodarone infusion was started. The patient has severe systolic cardia myopathy with ejection fraction approximately 20%. Patient was subsequently admitted to the intensive care unit for closer monitoring. 1. Recurrent symptomatic sustained ventricular tachycardia 2. 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 Severe mitral regurgitation No acute events overnight. Patient's telemetry was checked, no significant events noted on telemetry. Patient will be transferred out of the intensive care unit today. PT will reevaluate the patient today and ambulate the patient if tolerated. I will discuss the case with cardiology today, patient may possibly be discharged today. Patient is currently stable on amiodarone, Coreg. The patient has severe systolic heart failure with an ejection fraction of 15% and severe mitral regurg. He has a high risk of recurrent arrhythmias given his dilated cardiomyopathy. Continue aspirin, beta-tamica, Bumex, aldactone stopped by cardiology. Patient is a poor candidate for heart transplant. Palliative care was consulted to evaluate the patient. Possible family meeting with the patient and his family today. We will continue with medical management for now. I will follow up with Dr. Kramer today from cardiology as far as discharge planning goes. Patient now on eliquis. Continue to monitor on telemetry.
[2018-04-05] MEDS: Amiodarone 200 MG Tablet PO SCH (08:06)
[2018-04-05] MEDS: Famotidine PF Inj 20 MG/2 ML Vial IV.PUSH SCH (08:07)
[2018-04-05] MEDS: Senna/Docusate Sodium 8.6/50 MG Tablet PO SCH (08:08)
[2018-04-05 08:40] VITALS: TEMP 97.8
--- NOTE | 2018-04-05 12:09 | P.DS ---
Date of admission: 04/01/18 15:46 Primary care physician: Winston Richey MD Brief History from admission: Patient is a 78-year-old male with past medical history significant for TIA, AICD placement approximately 1 year ago for ventricular tachycardia/ fibrillation who presented to the emergency department for evaluation of arrhythmia and AICD firing. Dr. Kramer is his foreign language instructor. Apparently patient was walking in the park today when he felt dizzy and pacemaker fired. EMS was called, found patient in V. tach rhythm. Patient was given 150 mg of IV amiodarone by EMS. In the ER Patient stated that he is supposedly on a 'bunch of medications' but never refilled any after the 30-day supply ran out. Apparently he stopped Eliquis on his own due to bleeding. In the emergency department patient had recurrent ventricular tachycardia up to [address] Aden was consulted and evaluated patient. AICD rep was called and interrogated the pacemaker the shocks are appropriate. Patient was re-bolused with 150 mg of amiodarone and amiodarone infusion had been started per protocol. Also placed on IV heparin. DS: Medications - Discharge Medications Prescriptions: aspirin 162 mg PO DAILY #30 tab carvedilol [Coreg] 3.125 mg PO BID #60 tab furosemide [Lasix] 40 mg PO DAILY #60 tab DS: Summary Hospital Course: This patient is an 78-year-old male with a diagnosis of TIA, AICD placement approximately 1 year ago for ventricular tachycardia/fibrillation. The patient presented to the emergency department for evaluation after his AICD fired. The patient's foreign language instructor is Dr. Kramer. The patient was walking in the park when he felt dizzy and his AICD then fired. During that time the patient was found to be in V. tach. Apparently the patient will had not taken his medications because his meds ran out. Patient's pacemaker was interrogated in the emergency department and the patient was re-bolused with amiodarone and amiodarone infusion was started. The patient has severe systolic cardia myopathy with ejection fraction approximately 20%. Patient was subsequently admitted to the intensive care unit for closer monitoring. 1. Recurrent symptomatic sustained ventricular tachycardia 2. 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 Severe mitral regurgitation Patient presented with the symptoms mentioned above. As mentioned above the patient was found to be in V. tach. Troponins were negative. Patient has an ejection fraction of 15%. Patient was followed by cardiology throughout the hospitalization. Currently the patient is on aspirin, beta-tamica, Eliquis, Lasix, Entresto, amiodarone as per cardiology's recommendations. Patient can follow-up with his primary care doctor, if the patient's blood pressure can tolerate it lisinopril can be added to the patient's medication regimen. Scripts were given to the patient. Patient has a pacemaker and defibrillator. No acute events overnight noted on telemetry after the initiation of treatment. The risks and benefits of being on anti-correlation were discussed in detail the patient. He agrees to continue anticoagulation on discharge. Physical therapy evaluate the patient, the patient will be discharged with a front wheel walker. I will discuss the case with cardiology today, patient may possibly be discharged today. Patient is a poor candidate for heart transplant. We will continue with medical management for now. Continue to monitor on telemetry. - Time Spent with Patient Total time spent providing and/or coordinating discharge services: Greater than 30 minutes - Quality: VTE Deep Vein Thrombosis/Pulmonary Embolism Present on Admission: Yes Exam Vital signs: Vital Signs 04/04/18 12:00 04/04/18 12:39 04/04/18 13:00 Temperature 97.8 F Pulse Rate 74 77 78 Respiratory Rate 17 24 16 Blood Pressure 102/64 109/62 108/66 Pulse Oximetry 99 100 98 04/04/18 13:30 04/04/18 13:35 04/04/18 14:00 Temperature Pulse Rate 77 78 69 Respiratory Rate 25 H 26 H 27 H Blood Pressure 101/62 110/70 86/54 L Pulse Oximetry 99 98 98 04/04/18 14:30 04/04/18 14:57 04/04/18 15:00 Temperature Pulse Rate 67 69 67 Respiratory Rate 21 23 19 Blood Pressure 89/50 L 86/55 L Pulse Oximetry 99 100 04/04/18 15:06 04/04/18 15:30 04/04/18 16:00 Temperature 97.7 F Pulse Rate 65 64 70 Respiratory Rate 20 19 26 H Blood Pressure 85/53 L 88/59 L 104/55 L Pulse Oximetry 100 99 99 04/04/18 16:30 04/04/18 17:00 04/04/18 17:30 Temperature Pulse Rate 65 67 69 Respiratory Rate 26 H 21 20 Blood Pressure 87/52 L 90/55 L 94/55 L Pulse Oximetry 100 99 100 04/04/18 18:00 04/04/18 18:30 04/04/18 19:00 Temperature Pulse Rate 80 69 64 Respiratory Rate 20 23 20 Blood Pressure 100/58 L 92/52 L 81/47 L Pulse Oximetry 95 96 95 04/04/18 19:06 04/04/18 19:30 04/04/18 19:47 Temperature Pulse Rate 69 71 73 Respiratory Rate 19 20 16 Blood Pressure 81/50 L 88/57 L Pulse Oximetry 87 L 97 96 04/04/18 20:00 04/04/18 20:30 04/04/18 21:00 Temperature 97.7 F Pulse Rate 76 74 72 Respiratory Rate 21 27 H 22 Blood Pressure 91/56 L 101/54 L 95/61 L Pulse Oximetry 97 96 97 04/04/18 21:03 04/04/18 21:07 04/04/18 21:30 Temperature Pulse Rate 74 73 71 Respiratory Rate 26 H 24 21 Blood Pressure 90/61 L 96/60 L 96/60 L Pulse Oximetry 95 81 L 97 04/04/18 22:00 04/04/18 22:33 04/04/18 23:00 Temperature Pulse Rate 72 77 73 Respiratory Rate 20 29 H 25 H Blood Pressure 95/58 L 95/55 L 88/63 L Pulse Oximetry 96 95 93 L 04/04/18 23:30 04/05/18 00:00 04/05/18 00:01 Temperature 97.7 F Pulse Rate 79 84 83 Respiratory Rate 20 35 H 30 H Blood Pressure 95/64 L 92/66 L Pulse Oximetry 95 94 L 94 L 04/05/18 00:30 04/05/18 00:58 04/05/18 01:00 Temperature Pulse Rate 74 71 Respiratory Rate 20 18 Blood Pressure 95/61 L 98/63 L Pulse Oximetry 95 94 L 94 L 04/05/18 01:30 04/05/18 02:00 04/05/18 02:13 Temperature Pulse Rate 69 73 70 Respiratory Rate 34 H 24 18 Blood Pressure 91/60 L 93/60 L Pulse Oximetry 93 L 95 95 04/05/18 02:31 04/05/18 03:00 04/05/18 03:03 Temperature Pulse Rate 71 70 68 Respiratory Rate 22 39 H 33 H Blood Pressure 98/55 L 99/62 L Pulse Oximetry 92 L 88 L 93 L 04/05/18 03:30 04/05/18 03:44 04/05/18 04:00 Temperature 97.7 F Pulse Rate 85 72 69 Respiratory Rate 25 H 16 22 Blood Pressure 112/63 95/60 L Pulse Oximetry 93 L 95 04/05/18 04:30 04/05/18 05:00 04/05/18 05:01 Temperature Pulse Rate 70 71 77 Respiratory Rate 17 25 H 30 H Blood Pressure 102/58 L 106/56 L Pulse Oximetry 95 96 94 L 04/05/18 05:30 04/05/18 06:00 04/05/18 06:30 Temperature Pulse Rate 71 72 72 Respiratory Rate 23 29 H 21 Blood Pressure 111/62 99/65 L 101/68 Pulse Oximetry 91 L 92 L 92 L 04/05/18 07:00 04/05/18 07:30 04/05/18 08:00 Temperature 97.8 F Pulse Rate 71 89 80 Respiratory Rate 18 22 18 Blood Pressure 101/56 L 115/73 103/63 Pulse Oximetry 95 92 L 94 L 04/05/18 08:30 04/05/18 09:00 04/05/18 09:16 Temperature Pulse Rate 77 86 76 Respiratory Rate 23 27 H 22 Blood Pressure 104/65 105/59 L Pulse Oximetry 97 95 97 04/05/18 09:55 04/05/18 09:56 04/05/18 10:03 Temperature Pulse Rate 78 79 80 Respiratory Rate 31 H 27 H 22 Blood Pressure 107/59 L 90/55 L Pulse Oximetry 93 L 93 L 04/05/18 10:04 04/05/18 11:00 04/05/18 11:08 Temperature Pulse Rate 78 68 70 Respiratory Rate 22 21 25 H Blood Pressure 95/55 L 83/58 L Pulse Oximetry 95 95 Intake & Output 04/04/18 04/05/18 04/05/18 18:59 06:59 18:59 Intake Total 875 / 875 100 / 100 Output Total 1100 / 1100 1600 / 1600 Balance -225 / -225 -1500 / -1500 Weight 72.7 kg Intake: IV 125 / 125 Heparin/D5W 25,000 U/250 mL 25, 125 / 125 000 unit In 250 ml @ Per Protocol IV.CONT TITRATE PRN Rx #:[id number] Oral 750 / 750 100 / 100 Output: Urine 1100 / 1100 1600 / 1600 Other: Date of Last Bowel Movement 04/04/18 04/04/18 04/04/18 Narrative: General patient in no acute distress as of now. No chest pain, no palpitations. HEENT extraocular movements are intact, clear oropharyngeal mucosa, no JVD Cardiovascular S1-S2 audible Respiratory clear to auscultation bilaterally Abdomen soft, nontender, nondistended, normal bowel sounds Extremities no edema 2+ distal pulses in bilateral upper and lower extremities Neuro patient can move all 4 extremities, sensation is intact bilaterally. Results Procedures completed during hospitalization: None - Impressions ITS Impressions Chest X-Ray 04/01/18 13:22 CONCLUSION: 1. Cardiomegaly with subtle positive fluid balance. 2. Subtle patchy airspace disease in the right upper lung zone. Thoracic Aorta CT 04/01/18 13:37 CONCLUSION: 1. Unremarkable CTA examination of the chest, abdomen and pelvis. No significant flow-limiting lesion or aneurysm. 2. Mesenteric arteries are widely patent. 3. Clustered nodular opacities in the right suprahilar and posterior right upper lobe likely infectious/inflammatory in etiology. 4. Minimal parenchymal airspace disease and bronchiectasis at the lung bases. 5. Cardiomegaly. 6. Prominent prostate with diffuse bladder wall thickening and multiple bladder diverticula consistent with chronic bladder outlet obstruction. 7. Additional ancillary findings, as above. Discharge Plan - Discharge Disposition Patient Disposition: 01 Discharge Home - Discharge Condition Condition: Stable - Discharge Order Discharge Orders: Discharge Order (Routine); Ordered 04/05/18 Ordered By: Vicente Gutierrez - Physicians Team Primary Care Provider: Winston Richey Attending Provider: Vicente Gutierrez Other Providers: Sonny Aden MD ; Maria G Dean MD
[2018-04-05 12:54] VITALS: BP 101/62; PULSE 73; RESP 21; O2SAT 94
--- NOTE | 2018-04-05 18:52 | PQ ---
Physician Query Response Document PATIENT: Norberto Plaza : 1940 ADMIT DATE: 04/01/2018 3:46 PM DISCH DATE: 04/05/2018 1:05 PM RESPONDING PROVIDER #: SMATEEN QUERY TEXT: CDS Clarification ACUTE systolic (congestive) heart failure, POA in the setting of Ventricular Tachycardia/ Medical non compliance requiring treatment with IV Amiodarone, po Bumex, po Entresto Other explanation of clinical findings. Unable to determine (no explanation for clinical findings). The patient's Clinical Indicators include: The medical record reflects the following clinical findings, treatment, and risk factors. * Clinical Indicators - 04/01 BNP - 4308, per 2D echo - EF 15%, severe mitral regurgitation, per 03/09 Progress Note - The patient has severe systolic heart failure * Risk Factors - H/O ventricular tachycardia, Medication noncompliance * Treatment - IV Amiodarone, Bumex po BID, Entresto BID Please clarify and document your clinical opinion in the progress notes and discharge summary includi ng the definitive and/or presumptive diagnosis (suspected or probable), related to the above clinical findings. Please include clinical findings supporting your diagnosis. Thank you, Gale Shaffer CDS: Gale Shaffer Contact Number: CDS/NAVY DIVER ext. [phone] Query created by: Gale Shaffer on 04/05/2018 12:54 PM RESPONSE TEXT: Acute on Chronic Systolic Heart Failure, POA. Ventricular Tachycardia likely secondary to Severe systolic heart failure. Electronically signed by: Vicente Gutierrez 04/05/2018 6:48 PM
[2018-04-05] MEDS ORDERED: Amiodarone 200 MG Tablet PO SCH (21:00)
[2018-04-08] MEDS ORDERED: Amiodarone 200 MG Tablet PO SCH (13:00)
[2018-04-11] MEDS ORDERED: Amiodarone 200 MG Tablet PO SCH (21:00)
[2018-04-19] MEDS ORDERED: Amiodarone 200 MG Tablet PO SCH (09:00)
== END 2018-04-05 13:05 | disposition home or self-care (01) ==
LOC: NEPE 13:17 → NEDA 15:46 → HIMC 16:40
PROVIDERS: ADMIT Hospitalist; ATTEND Hospitalist